=== PATIENT | male | born 1950 | race Caucasian/White ===

== ENCOUNTER 2017-08-16 11:38 | Inpatient (IN) | payer MEDICARE, BC ==
[~2017-08-16] VITALS: Ht 188 cm; Wt 99.3 kg
[2017-08-16] MEDS ORDERED: AMLO2.5T2 PO (14:22)
[2017-08-16] MEDS ORDERED: CAPT12.53 PO (14:22)
[2017-08-16] MEDS ORDERED: ATOR40TA PO (14:22)
[2017-08-16] MEDS ORDERED: CARV12.5 PO (14:22)
[2017-08-16] MEDS ORDERED: APIX5TAB3 PO (14:22)
[2017-08-16] MEDS ORDERED: INSU300I (14:22)
[2017-08-16] MEDS ORDERED: BUME1TAB4 PO (14:22)
[2017-08-16] MEDS ORDERED: AMIO200T27 PO (14:22)
[2017-08-16] MEDS ORDERED: ISOS10TA8 PO (14:22)
[2017-08-16] MEDS ORDERED: OXYC-658 PO (14:22)
[2017-08-16] MEDS ORDERED: dextrose 50%-water 50ml dispensing syringe IV PRN ×2 (14:30)
[2017-08-16] MEDS ORDERED: potassium Cl 40MEQ/NS 500ml 500 ML IV PRN ×2 (14:30)
[2017-08-16] MEDS: K and/or MAG REPLACEMENT MC SCH (14:30)
[2017-08-16] MEDS ORDERED: magnesium 2GM in 50ml NS 50 ML IV PRN (14:30)
[2017-08-16] MEDS ORDERED: MESSAGE TO PHARMACY PO ONE (14:30)
[2017-08-16] MEDS ORDERED: glucagon, human recombinant 1mg kit SUBCUT PRN (14:30)
[2017-08-16] MEDS ORDERED: magnesium 4gm in 100ml NS 100 ML IV PRN (14:30)
[2017-08-16] MEDS ORDERED: dextrose ORAL solution 15 GM/59 ML bottle PO PRN (14:30)
[2017-08-16] MEDS ORDERED: magnesium Cl slow-release 64mg tablet PO PRN (14:30)
[2017-08-16] MEDS ORDERED: acetaminophen 325mg tablet PO PRN (14:30)
[2017-08-16] MEDS ORDERED: mag hydrox/Alum hydrox/simeth 30ml oral suspension PO PRN (14:30)
[2017-08-16] MEDS ORDERED: potassium Cl 20 mEq SR tablet PO PRN (14:30)
[2017-08-16] MEDS ORDERED: ISOS30TA6 PO (14:41)
[2017-08-16 14:42] VITALS: BP 106/57
[2017-08-16] MEDS ORDERED: nitroGLYCERIN 0.4mg SUBLingual tab SL PRN (14:45)
[2017-08-16] MEDS ORDERED: metoprolol tartrate 1mg/ml inj IV PRN (14:45)
[2017-08-16] MEDS ORDERED: regadenoson 0.4mg/5ml syringe IV ONE (14:45)
[2017-08-16] MEDS ORDERED: CAFFEINE CITRATE 60 MG/3 ML injection vial IV PRN (14:45)
[2017-08-16] MEDS: DOBUTamine-DoBUTrex 500mg/D5W 250 ML IV SCH (15:14)
[2017-08-16 15:51] LABS: BASOPHILS % (AUTO) 0.2 % (0-1); EOSINOPHILS # (AUTO) 0.5 X10'3 (0-0.9); EOSINOPHILS % (AUTO) 14.2 % (0-6); HEMATOCRIT 28.6 % (42.0-52.0); HEMOGLOBIN 9.6 g/dl (14.0-17.9); LYMPHOCYTES # (AUTO) 0.8 X10'3 (1.1-4.8); LYMPHOCYTES % (AUTO) 24.5 % (21-51); MEAN CORPUSCULAR HGB CONC 33.6 % (33.0-36.5); MEAN CORPUSCULAR VOLUME 98.1 FL (78-98); MEAN PLATELET VOLUME 8.3 FL (7.4-10.4); MONOCYTES # (AUTO) 0.5 X10'3 (0-0.9); MONOCYTES % (AUTO) 14.8 % (2-12); NEUTROPHILS # (AUTO) 1.5 X10'3 (1.8-7.7); NEUTROPHILS % (AUTO) 46.3 % (42-75); PLATELET COUNT 141 X10'3 (140-440); RED BLOOD COUNT 2.91 X10'6 (4.70-6.10); RED CELL DISTRIBUTION WIDTH 18.3 % (11.5-14.5); WHITE BLOOD COUNT 3.2 X10'3 (4.5-11.0)
[2017-08-16 16:15] LABS: ALANINE AMINOTRANSFERASE 16 U/L (12-78); ALBUMIN 2.9 G/DL (3.4-5.0); ALBUMIN/GLOBULIN RATIO 0.7 (1.1-1.5); ALKALINE PHOSPHATASE 113 IU/L (46-116); ANION GAP 16 (8-16); ASPARTATE AMINO TRANSFERASE 26 U/L (10-37); BLOOD UREA NITROGEN 95 MG/DL (7-18); BUN/CREATININE RATIO 19.5 (5.4-32.0); CALCIUM 8.9 MG/DL (8.5-10.1); CHLORIDE 97 MMOL/L (99-107); CREATININE 4.88 MG/DL (0.60-1.10); GLUCOSE 164 MG/DL (70-104); MAGNESIUM 2.5 MG/DL (1.5-2.4); POTASSIUM 3.1 MMOL/L (3.5-5.1); SODIUM 136 MMOL/L (135-145); TOTAL CARBON DIOXIDE 23.4 MMOL/L (24-32); TOTAL PROTEIN 7.2 G/DL (6.4-8.2); eGFR 12 ML/MIN
[2017-08-16 16:20] LABS: INR 1.4 INR; PARTIAL THROMBOPLASTIN TIME 37 SECONDS (22-32); PROTHROMBIN TIME 14.6 SECONDS (9.0-12.0)
[2017-08-16 16:34] LABS: CLARITY,URINE CLEAR (Clear); COLOR,URINE YELLOW (Yellow); GLUCOSE, URINE NEGATIVE (Neg); KETONES,URINE NEGATIVE (Neg); LEUKOCYTE ESTERASE ,URINE NEGATIVE (Neg); NITRITES, URINE NEGATIVE (Neg); OCCULT BLOOD,URINE TRACE-INTACT (Neg); PROTEIN,URINE 30 mg/dl (Neg); UROBILINOGEN,URINE 0.2 E.U/dL (0.2-1.0)
[2017-08-16 16:35] LABS: UA COLLECTION TYPE NON-SPECIFIED
[2017-08-16] MEDS: potassium Cl 20 mEq SR tablet PO PRN ×2 (16:35→20:35)
[2017-08-16 16:43] LABS: HYALINE CASTS 0-3 /LPF (NEGATIVE); SQUAMOUS EPITHELIAL CELL,UR FEW /LPF (FEW)
[2017-08-16 16:44] LABS: BACTERIA,URINE FEW /HPF (Neg); RBC,URINE 0-2 /HPF (0-2); WBC,URINE 0-4 /HPF (0-4)
[2017-08-16 17:07] LABS: UA EOSINOPHILS FEW EOS /HPF
[2017-08-16 19:00] VITALS: BP 112/57
[2017-08-16] MEDS: atorvastatin 20mg tablet PO SCH (20:23)
[2017-08-16] MEDS: carVEDilol 12.5mg tablet PO SCH (20:23)
[2017-08-16] MEDS: apixaban 5mg tablet PO SCH (20:23)
[2017-08-16] MEDS: oxyCODONE IR 5mg (immed. release) tablet PO PRN (20:36)
[2017-08-16] MEDS: insulin glargine (Lantus) pen - multi-dose SQ SCH (20:44)
[2017-08-16 21:00] VITALS: BP 130/72
[2017-08-16] MEDS ORDERED: temazepam 15mg capsule PO PRN (21:00)
[2017-08-16] MEDS ORDERED: insulin glargine (Lantus) pen - multi-dose SQ SCH (21:00)
[2017-08-16 23:00] VITALS: BP 124/76
[2017-08-17] VITALS (9 sets, daily range): BP systolic 113–128; BP diastolic 64–72
[2017-08-17 05:27] LABS: BASOPHILS % (AUTO) 0.6 % (0-1); EOSINOPHILS # (AUTO) 0.6 X10'3 (0-0.9); EOSINOPHILS % (AUTO) 15.7 % (0-6); HEMATOCRIT 28.9 % (42.0-52.0); HEMOGLOBIN 9.4 g/dl (14.0-17.9); LYMPHOCYTES # (AUTO) 0.7 X10'3 (1.1-4.8); MEAN CORPUSCULAR HEMOGLOBIN 32.5 PG (27.0-31.0); MEAN CORPUSCULAR HGB CONC 32.6 % (33.0-36.5); MEAN CORPUSCULAR VOLUME 99.6 FL (78-98); MEAN PLATELET VOLUME 8.2 FL (7.4-10.4); MONOCYTES # (AUTO) 0.5 X10'3 (0-0.9); NEUTROPHILS # (AUTO) 1.8 X10'3 (1.8-7.7); NEUTROPHILS % (AUTO) 50.7 % (42-75); PLATELET COUNT 145 X10'3 (140-440); RED BLOOD COUNT 2.91 X10'6 (4.70-6.10); WHITE BLOOD COUNT 3.6 X10'3 (4.5-11.0)
[2017-08-17 06:09] LABS: ALANINE AMINOTRANSFERASE 17 U/L (12-78); ALBUMIN 2.8 G/DL (3.4-5.0); ALBUMIN/GLOBULIN RATIO 0.7 (1.1-1.5); ALKALINE PHOSPHATASE 104 IU/L (46-116); ANION GAP 15 (8-16); ASPARTATE AMINO TRANSFERASE 19 U/L (10-37); BILIRUBIN,TOTAL 1.3 MG/DL (0.1-1.0); BLOOD UREA NITROGEN 96 MG/DL (7-18); BUN/CREATININE RATIO 19.5 (5.4-32.0); CALCIUM 9.1 MG/DL (8.5-10.1); CHLORIDE 100 MMOL/L (99-107); CHOL/HDL RATIO 1.8 (0.00-4.99); CHOLESTEROL 70 MG/DL (0-200); CREATININE 4.92 MG/DL (0.60-1.10); GLUCOSE 180 MG/DL (70-104); HDL CHOLESTEROL 38 MG/DL (35-60); LDL CHOLESTEROL 28 MG/DL (50-100); MAGNESIUM 2.3 MG/DL (1.5-2.4); PHOSPHORUS 5.1 MG/DL (2.3-4.5); POTASSIUM 3.4 MMOL/L (3.5-5.1); SODIUM 139 MMOL/L (135-145); TOTAL CARBON DIOXIDE 24.3 MMOL/L (24-32); TRIGLYCERIDES 38 MG/DL (20-135); eGFR 12 ML/MIN
[2017-08-17] MEDS: K and/or MAG REPLACEMENT MC SCH (08:00)
[2017-08-17] MEDS: apixaban 5mg tablet PO SCH ×2 (08:21→20:12)
[2017-08-17] MEDS: isosorbide mononitrate 30mg tab.SR.24H PO SCH (08:21)
[2017-08-17] MEDS: amLODIPine 5mg tablet PO SCH (08:21)
[2017-08-17] MEDS: carVEDilol 12.5mg tablet PO SCH ×2 (08:21→20:12)
[2017-08-17] MEDS: furosemide 40mg/4ml inj IV SCH (08:22)
[2017-08-17] MEDS: oxyCODONE IR 5mg (immed. release) tablet PO PRN ×2 (09:48→20:12)
[2017-08-17] MEDS: DOBUTamine-DoBUTrex 500mg/D5W 250 ML IV SCH (09:49)
[2017-08-17] MEDS: potassium Cl 20 mEq SR tablet PO PRN ×2 (09:55→20:12)
[2017-08-17] MEDS ORDERED: pneumococcal 23-VAL P-sac vacc 25 mcg/0.5ml vial IMVAC ONE (10:00)
[2017-08-17] MEDS: insulin Lispro (HumaLOG) vial - multi-dose SQ SCH (14:09)
[2017-08-17] MEDS: ondansetron/PF 4mg/2ml inj IV PRN (15:58)
[2017-08-17] MEDS: atorvastatin 20mg tablet PO SCH (20:12)
[2017-08-17] MEDS: insulin glargine (Lantus) pen - multi-dose SQ SCH (21:00)
[2017-08-18] VITALS (10 sets, daily range): BP systolic 104–126; BP diastolic 60–91
[2017-08-18] MEDS: DOBUTamine-DoBUTrex 500mg/D5W 250 ML IV SCH ×4 (02:04→21:58)
[2017-08-18] MEDS: oxyCODONE IR 5mg (immed. release) tablet PO PRN ×2 (02:39→19:31)
[2017-08-18 05:40] LABS: BASOPHILS % (AUTO) 0.6 % (0-1); EOSINOPHILS # (AUTO) 0.6 X10'3 (0-0.9); EOSINOPHILS % (AUTO) 18.1 % (0-6); HEMATOCRIT 27.6 % (42.0-52.0); HEMOGLOBIN 9.3 g/dl (14.0-17.9); LYMPHOCYTES # (AUTO) 0.5 X10'3 (1.1-4.8); LYMPHOCYTES % (AUTO) 16.9 % (21-51); MEAN CORPUSCULAR HEMOGLOBIN 32.7 PG (27.0-31.0); MEAN CORPUSCULAR HGB CONC 33.5 % (33.0-36.5); MEAN CORPUSCULAR VOLUME 97.5 FL (78-98); MEAN PLATELET VOLUME 8.1 FL (7.4-10.4); MONOCYTES # (AUTO) 0.4 X10'3 (0-0.9); MONOCYTES % (AUTO) 13.5 % (2-12); NEUTROPHILS # (AUTO) 1.6 X10'3 (1.8-7.7); NEUTROPHILS % (AUTO) 50.9 % (42-75); PLATELET COUNT 136 X10'3 (140-440); RED BLOOD COUNT 2.83 X10'6 (4.70-6.10); WHITE BLOOD COUNT 3.1 X10'3 (4.5-11.0)
[2017-08-18 07:22] LABS: ALANINE AMINOTRANSFERASE 15 U/L (12-78); ALBUMIN 2.8 G/DL (3.4-5.0); ALBUMIN/GLOBULIN RATIO 0.7 (1.1-1.5); ALKALINE PHOSPHATASE 98 IU/L (46-116); ANION GAP 15 (8-16); ASPARTATE AMINO TRANSFERASE 25 U/L (10-37); BILIRUBIN,TOTAL 1.5 MG/DL (0.1-1.0); BLOOD UREA NITROGEN 95 MG/DL (7-18); BUN/CREATININE RATIO 20.1 (5.4-32.0); CALCIUM 8.9 MG/DL (8.5-10.1); CHLORIDE 100 MMOL/L (99-107); CREATININE 4.73 MG/DL (0.60-1.10); GLUCOSE 143 MG/DL (70-104); MAGNESIUM 2.3 MG/DL (1.5-2.4); PHOSPHORUS 4.7 MG/DL (2.3-4.5); POTASSIUM 3.9 MMOL/L (3.5-5.1); SODIUM 138 MMOL/L (135-145); TOTAL CARBON DIOXIDE 22.9 MMOL/L (24-32); TOTAL PROTEIN 6.8 G/DL (6.4-8.2); eGFR 12 ML/MIN
[2017-08-18] MEDS: carVEDilol 12.5mg tablet PO SCH ×2 (07:48→19:22)
[2017-08-18] MEDS: apixaban 5mg tablet PO SCH ×2 (07:48→19:22)
[2017-08-18] MEDS: isosorbide mononitrate 30mg tab.SR.24H PO SCH (07:48)
[2017-08-18] MEDS: furosemide 40mg/4ml inj IV SCH (07:49)
[2017-08-18] MEDS: amLODIPine 5mg tablet PO SCH (07:49)
[2017-08-18] MEDS: K and/or MAG REPLACEMENT MC SCH (08:00)
[2017-08-18] MEDS: insulin Lispro (HumaLOG) vial - multi-dose SQ SCH ×2 (13:27→19:27)
[2017-08-18] MEDS: atorvastatin 20mg tablet PO SCH (21:14)
[2017-08-18] MEDS: insulin glargine (Lantus) pen - multi-dose SQ SCH (21:20)
[2017-08-19] VITALS (8 sets, daily range): BP systolic 103–131; BP diastolic 56–94
[2017-08-19] MEDS: oxyCODONE IR 5mg (immed. release) tablet PO PRN ×4 (01:38→21:22)
[2017-08-19 05:18] LABS: BASOPHILS % (AUTO) 0.3 % (0-1); EOSINOPHILS # (AUTO) 0.6 X10'3 (0-0.9); EOSINOPHILS % (AUTO) 18.3 % (0-6); HEMATOCRIT 28.2 % (42.0-52.0); HEMOGLOBIN 9.3 g/dl (14.0-17.9); LYMPHOCYTES # (AUTO) 0.6 X10'3 (1.1-4.8); LYMPHOCYTES % (AUTO) 17.5 % (21-51); MEAN CORPUSCULAR HEMOGLOBIN 32.6 PG (27.0-31.0); MEAN CORPUSCULAR HGB CONC 32.9 % (33.0-36.5); MONOCYTES # (AUTO) 0.4 X10'3 (0-0.9); MONOCYTES % (AUTO) 12.7 % (2-12); NEUTROPHILS # (AUTO) 1.7 X10'3 (1.8-7.7); NEUTROPHILS % (AUTO) 51.2 % (42-75); PLATELET COUNT 141 X10'3 (140-440); RED BLOOD COUNT 2.85 X10'6 (4.70-6.10); RED CELL DISTRIBUTION WIDTH 18.1 % (11.5-14.5); WHITE BLOOD COUNT 3.4 X10'3 (4.5-11.0)
[2017-08-19 06:05] LABS: ALANINE AMINOTRANSFERASE 15 U/L (12-78); ALBUMIN 2.9 G/DL (3.4-5.0); ALBUMIN/GLOBULIN RATIO 0.7 (1.1-1.5); ALKALINE PHOSPHATASE 106 IU/L (46-116); ANION GAP 14 (8-16); ASPARTATE AMINO TRANSFERASE 24 U/L (10-37); BILIRUBIN,TOTAL 1.4 MG/DL (0.1-1.0); BLOOD UREA NITROGEN 94 MG/DL (7-18); BUN/CREATININE RATIO 19.1 (5.4-32.0); CALCIUM 8.9 MG/DL (8.5-10.1); CHLORIDE 99 MMOL/L (99-107); CREATININE 4.91 MG/DL (0.60-1.10); GLUCOSE 100 MG/DL (70-104); MAGNESIUM 2.5 MG/DL (1.5-2.4); PHOSPHORUS 4.9 MG/DL (2.3-4.5); POTASSIUM 3.8 MMOL/L (3.5-5.1); SODIUM 139 MMOL/L (135-145); TOTAL CARBON DIOXIDE 26.2 MMOL/L (24-32); TOTAL PROTEIN 7.2 G/DL (6.4-8.2); eGFR 12 ML/MIN
[2017-08-19] MEDS: ondansetron/PF 4mg/2ml inj IV PRN (06:30)
[2017-08-19] MEDS: carVEDilol 12.5mg tablet PO SCH ×2 (07:30→19:38)
[2017-08-19] MEDS: apixaban 5mg tablet PO SCH ×2 (07:30→19:38)
[2017-08-19] MEDS: isosorbide mononitrate 30mg tab.SR.24H PO SCH (07:30)
[2017-08-19] MEDS: amLODIPine 5mg tablet PO SCH (07:30)
[2017-08-19] MEDS: furosemide 40mg/4ml inj IV SCH (07:31)
[2017-08-19] MEDS: K and/or MAG REPLACEMENT MC SCH (08:00)
[2017-08-19] MEDS: insulin Lispro (HumaLOG) vial - multi-dose SQ SCH ×2 (09:13→19:37)
[2017-08-19] MEDS: DOBUTamine-DoBUTrex 500mg/D5W 250 ML IV SCH (16:19)
[2017-08-19] MEDS: atorvastatin 20mg tablet PO SCH (21:14)
[2017-08-19] MEDS: insulin glargine (Lantus) pen - multi-dose SQ SCH (21:16)
[2017-08-19] MEDS: magnesium hydroxide 30ml (MOM) UD suspension PO PRN (23:17)
[2017-08-20] VITALS (9 sets, daily range): BP systolic 94–129; BP diastolic 53–84
[2017-08-20] MEDS: oxyCODONE IR 5mg (immed. release) tablet PO PRN ×3 (05:28→21:26)
[2017-08-20 06:07] LABS: BASOPHILS % (AUTO) 0.7 % (0-1); EOSINOPHILS # (AUTO) 0.6 X10'3 (0-0.9); EOSINOPHILS % (AUTO) 17.2 % (0-6); HEMATOCRIT 26.2 % (42.0-52.0); HEMOGLOBIN 8.8 g/dl (14.0-17.9); LYMPHOCYTES # (AUTO) 0.6 X10'3 (1.1-4.8); LYMPHOCYTES % (AUTO) 18.3 % (21-51); MEAN CORPUSCULAR HEMOGLOBIN 32.9 PG (27.0-31.0); MEAN CORPUSCULAR HGB CONC 33.7 % (33.0-36.5); MEAN CORPUSCULAR VOLUME 97.8 FL (78-98); MEAN PLATELET VOLUME 8.3 FL (7.4-10.4); MONOCYTES # (AUTO) 0.4 X10'3 (0-0.9); MONOCYTES % (AUTO) 12.8 % (2-12); NEUTROPHILS # (AUTO) 1.7 X10'3 (1.8-7.7); PLATELET COUNT 127 X10'3 (140-440); RED BLOOD COUNT 2.68 X10'6 (4.70-6.10); RED CELL DISTRIBUTION WIDTH 18.1 % (11.5-14.5); WHITE BLOOD COUNT 3.3 X10'3 (4.5-11.0)
[2017-08-20 06:43] LABS: ALANINE AMINOTRANSFERASE 18 U/L (12-78); ALBUMIN 2.8 G/DL (3.4-5.0); ALBUMIN/GLOBULIN RATIO 0.7 (1.1-1.5); ALKALINE PHOSPHATASE 96 IU/L (46-116); ANION GAP 13 (8-16); ASPARTATE AMINO TRANSFERASE 25 U/L (10-37); BILIRUBIN,TOTAL 1.2 MG/DL (0.1-1.0); BLOOD UREA NITROGEN 98 MG/DL (7-18); BUN/CREATININE RATIO 19.1 (5.4-32.0); CALCIUM 8.8 MG/DL (8.5-10.1); CHLORIDE 98 MMOL/L (99-107); CREATININE 5.12 MG/DL (0.60-1.10); GLUCOSE 122 MG/DL (70-104); MAGNESIUM 2.4 MG/DL (1.5-2.4); PHOSPHORUS 4.7 MG/DL (2.3-4.5); POTASSIUM 3.7 MMOL/L (3.5-5.1); SODIUM 137 MMOL/L (135-145); TOTAL CARBON DIOXIDE 26.2 MMOL/L (24-32); TOTAL PROTEIN 6.9 G/DL (6.4-8.2); eGFR 11 ML/MIN
[2017-08-20] MEDS: carVEDilol 12.5mg tablet PO SCH ×2 (07:26→19:42)
[2017-08-20] MEDS: furosemide 40mg/4ml inj IV SCH (07:26)
[2017-08-20] MEDS: amLODIPine 5mg tablet PO SCH (07:26)
[2017-08-20] MEDS: isosorbide mononitrate 30mg tab.SR.24H PO SCH (07:26)
[2017-08-20] MEDS: apixaban 5mg tablet PO SCH ×2 (07:26→19:42)
[2017-08-20] MEDS: K and/or MAG REPLACEMENT MC SCH (08:00)
[2017-08-20] MEDS: metolazone 2.5mg tablet PO SCH (09:20)
[2017-08-20] MEDS: insulin Lispro (HumaLOG) vial - multi-dose SQ SCH ×3 (09:23→18:44)
[2017-08-20] MEDS: DOBUTamine-DoBUTrex 500mg/D5W 250 ML IV SCH (11:54)
[2017-08-20] MEDS: atorvastatin 20mg tablet PO SCH (20:57)
[2017-08-20] MEDS: insulin glargine (Lantus) pen - multi-dose SQ SCH (21:00)
[2017-08-20] MEDS: ondansetron/PF 4mg/2ml inj IV PRN (21:09)
[2017-08-21] VITALS (15 sets, daily range): BP systolic 101–126; BP diastolic 51–76
[2017-08-21] MEDS: oxyCODONE IR 5mg (immed. release) tablet PO PRN ×3 (04:03→17:11)
[2017-08-21] MEDS: DOBUTamine-DoBUTrex 500mg/D5W 250 ML IV SCH (05:36)
[2017-08-21 06:01] LABS: BASOPHILS % (AUTO) 0.5 % (0-1); EOSINOPHILS # (AUTO) 0.6 X10'3 (0-0.9); EOSINOPHILS % (AUTO) 16.7 % (0-6); HEMATOCRIT 27.3 % (42.0-52.0); HEMOGLOBIN 9.2 g/dl (14.0-17.9); LYMPHOCYTES # (AUTO) 0.8 X10'3 (1.1-4.8); LYMPHOCYTES % (AUTO) 20.9 % (21-51); MEAN CORPUSCULAR HEMOGLOBIN 32.7 PG (27.0-31.0); MEAN CORPUSCULAR HGB CONC 33.7 % (33.0-36.5); MEAN CORPUSCULAR VOLUME 97.1 FL (78-98); MEAN PLATELET VOLUME 8.6 FL (7.4-10.4); MONOCYTES # (AUTO) 0.4 X10'3 (0-0.9); MONOCYTES % (AUTO) 11.4 % (2-12); NEUTROPHILS # (AUTO) 1.9 X10'3 (1.8-7.7); NEUTROPHILS % (AUTO) 50.5 % (42-75); PLATELET COUNT 137 X10'3 (140-440); RED BLOOD COUNT 2.81 X10'6 (4.70-6.10); RED CELL DISTRIBUTION WIDTH 17.4 % (11.5-14.5); WHITE BLOOD COUNT 3.9 X10'3 (4.5-11.0)
[2017-08-21 06:58] LABS: ALANINE AMINOTRANSFERASE 19 U/L (12-78); ALBUMIN/GLOBULIN RATIO 0.7 (1.1-1.5); ALKALINE PHOSPHATASE 98 IU/L (46-116); ANION GAP 14 (8-16); ASPARTATE AMINO TRANSFERASE 28 U/L (10-37); BILIRUBIN,TOTAL 1.1 MG/DL (0.1-1.0); BLOOD UREA NITROGEN 99 MG/DL (7-18); BUN/CREATININE RATIO 18.6 (5.4-32.0); CHLORIDE 96 MMOL/L (99-107); CREATININE 5.33 MG/DL (0.60-1.10); GLUCOSE 81 MG/DL (70-104); MAGNESIUM 2.6 MG/DL (1.5-2.4); PHOSPHORUS 4.3 MG/DL (2.3-4.5); POTASSIUM 4.4 MMOL/L (3.5-5.1); SODIUM 135 MMOL/L (135-145); TOTAL CARBON DIOXIDE 25.1 MMOL/L (24-32); TOTAL PROTEIN 7.4 G/DL (6.4-8.2); eGFR 11 ML/MIN
[2017-08-21] MEDS: isosorbide mononitrate 30mg tab.SR.24H PO SCH (07:50)
[2017-08-21] MEDS: furosemide 40mg/4ml inj IV SCH ×2 (07:50→20:45)
[2017-08-21] MEDS: carVEDilol 12.5mg tablet PO SCH ×2 (07:50→20:45)
[2017-08-21] MEDS: apixaban 5mg tablet PO SCH ×2 (07:50→20:45)
[2017-08-21] MEDS: amLODIPine 5mg tablet PO SCH (07:50)
[2017-08-21] MEDS: metolazone 2.5mg tablet PO SCH (07:54)
[2017-08-21] MEDS: K and/or MAG REPLACEMENT MC SCH (08:00)
[2017-08-21] MEDS: insulin Lispro (HumaLOG) vial - multi-dose SQ SCH (09:24)
[2017-08-21] MEDS: atorvastatin 20mg tablet PO SCH (20:44)
[2017-08-21] MEDS: insulin glargine (Lantus) pen - multi-dose SQ SCH (21:24)
[2017-08-22] VITALS (11 sets, daily range): BP systolic 104–123; BP diastolic 63–80
[2017-08-22] MEDS: oxyCODONE IR 5mg (immed. release) tablet PO PRN ×4 (01:13→20:29)
[2017-08-22] MEDS: DOBUTamine-DoBUTrex 500mg/D5W 250 ML IV SCH ×2 (01:17→20:16)
[2017-08-22 05:24] LABS: BASOPHILS % (AUTO) 1.1 % (0-1); EOSINOPHILS # (AUTO) 0.6 X10'3 (0-0.9); HEMATOCRIT 26.5 % (42.0-52.0); HEMOGLOBIN 8.9 g/dl (14.0-17.9); LYMPHOCYTES # (AUTO) 0.7 X10'3 (1.1-4.8); LYMPHOCYTES % (AUTO) 16.6 % (21-51); MEAN CORPUSCULAR HEMOGLOBIN 32.7 PG (27.0-31.0); MEAN CORPUSCULAR HGB CONC 33.7 % (33.0-36.5); MEAN CORPUSCULAR VOLUME 97.1 FL (78-98); MEAN PLATELET VOLUME 8.4 FL (7.4-10.4); MONOCYTES # (AUTO) 0.4 X10'3 (0-0.9); MONOCYTES % (AUTO) 11.2 % (2-12); NEUTROPHILS # (AUTO) 2.2 X10'3 (1.8-7.7); NEUTROPHILS % (AUTO) 55.1 % (42-75); PLATELET COUNT 118 X10'3 (140-440); RED BLOOD COUNT 2.73 X10'6 (4.70-6.10); RED CELL DISTRIBUTION WIDTH 17.5 % (11.5-14.5); WHITE BLOOD COUNT 3.9 X10'3 (4.5-11.0)
[2017-08-22 06:18] LABS: ALANINE AMINOTRANSFERASE 13 U/L (12-78); ALBUMIN 2.9 G/DL (3.4-5.0); ALBUMIN/GLOBULIN RATIO 0.7 (1.1-1.5); ALKALINE PHOSPHATASE 94 IU/L (46-116); ANION GAP 14 (8-16); ASPARTATE AMINO TRANSFERASE 25 U/L (10-37); BILIRUBIN,TOTAL 1.1 MG/DL (0.1-1.0); BLOOD UREA NITROGEN 101 MG/DL (7-18); BUN/CREATININE RATIO 17.8 (5.4-32.0); CALCIUM 8.9 MG/DL (8.5-10.1); CHLORIDE 95 MMOL/L (99-107); CREATININE 5.69 MG/DL (0.60-1.10); GLUCOSE 181 MG/DL (70-104); MAGNESIUM 2.7 MG/DL (1.5-2.4); PHOSPHORUS 4.9 MG/DL (2.3-4.5); POTASSIUM 4.3 MMOL/L (3.5-5.1); SODIUM 133 MMOL/L (135-145); TOTAL CARBON DIOXIDE 23.9 MMOL/L (24-32); TOTAL PROTEIN 7.1 G/DL (6.4-8.2); eGFR 10 ML/MIN
[2017-08-22] MEDS: amLODIPine 5mg tablet PO SCH (07:46)
[2017-08-22] MEDS: carVEDilol 12.5mg tablet PO SCH ×2 (07:46→20:13)
[2017-08-22] MEDS: isosorbide mononitrate 30mg tab.SR.24H PO SCH (07:46)
[2017-08-22] MEDS: apixaban 5mg tablet PO SCH ×2 (07:46→20:13)
[2017-08-22] MEDS: K and/or MAG REPLACEMENT MC SCH (08:00)
[2017-08-22] MEDS: insulin Lispro (HumaLOG) vial - multi-dose SQ SCH ×2 (09:01→14:16)
[2017-08-22] MEDS: normal saline 1000ml 1,000 ML IV SCH ×2 (09:04→23:00)
[2017-08-22] MEDS: atorvastatin 20mg tablet PO SCH (20:13)
[2017-08-22] MEDS: insulin glargine (Lantus) pen - multi-dose SQ SCH (20:25)
[2017-08-23] VITALS (11 sets, daily range): BP systolic 105–126; BP diastolic 57–72
[2017-08-23] MEDS: oxyCODONE IR 5mg (immed. release) tablet PO PRN ×3 (03:30→21:24)
[2017-08-23 07:37] LABS: BASOPHILS % (AUTO) 0.5 % (0-1); EOSINOPHILS # (AUTO) 0.6 X10'3 (0-0.9); EOSINOPHILS % (AUTO) 14.8 % (0-6); HEMOGLOBIN 9.2 g/dl (14.0-17.9); LYMPHOCYTES # (AUTO) 0.7 X10'3 (1.1-4.8); LYMPHOCYTES % (AUTO) 17.6 % (21-51); MEAN CORPUSCULAR HEMOGLOBIN 32.3 PG (27.0-31.0); MEAN CORPUSCULAR HGB CONC 32.9 % (33.0-36.5); MEAN CORPUSCULAR VOLUME 98.3 FL (78-98); MEAN PLATELET VOLUME 8.7 FL (7.4-10.4); MONOCYTES # (AUTO) 0.5 X10'3 (0-0.9); MONOCYTES % (AUTO) 11.3 % (2-12); NEUTROPHILS # (AUTO) 2.3 X10'3 (1.8-7.7); NEUTROPHILS % (AUTO) 55.8 % (42-75); PLATELET COUNT 121 X10'3 (140-440); RED BLOOD COUNT 2.85 X10'6 (4.70-6.10); RED CELL DISTRIBUTION WIDTH 17.8 % (11.5-14.5); WHITE BLOOD COUNT 4.1 X10'3 (4.5-11.0)
[2017-08-23 07:46] LABS: ALANINE AMINOTRANSFERASE 16 U/L (12-78); ALBUMIN/GLOBULIN RATIO 0.7 (1.1-1.5); ALKALINE PHOSPHATASE 96 IU/L (46-116); ANION GAP 13 (8-16); ASPARTATE AMINO TRANSFERASE 31 U/L (10-37); BILIRUBIN,TOTAL 1.1 MG/DL (0.1-1.0); BLOOD UREA NITROGEN 99 MG/DL (7-18); BUN/CREATININE RATIO 16.8 (5.4-32.0); CALCIUM 8.8 MG/DL (8.5-10.1); CHLORIDE 96 MMOL/L (99-107); CREATININE 5.91 MG/DL (0.60-1.10); GLUCOSE 124 MG/DL (70-104); POTASSIUM 4.3 MMOL/L (3.5-5.1); SODIUM 133 MMOL/L (135-145); TOTAL CARBON DIOXIDE 24.1 MMOL/L (24-32); TOTAL PROTEIN 7.3 G/DL (6.4-8.2); eGFR 10 ML/MIN
[2017-08-23] MEDS: carVEDilol 12.5mg tablet PO SCH ×2 (07:52→21:24)
[2017-08-23] MEDS: amLODIPine 5mg tablet PO SCH (07:52)
[2017-08-23] MEDS: isosorbide mononitrate 30mg tab.SR.24H PO SCH (07:52)
[2017-08-23] MEDS ORDERED: albumin (human) 25% 100ml IV 100 ML IV PRN (08:00)
[2017-08-23] MEDS ORDERED: epoetin 20,000 units/ml inj IV ONE (08:00)
[2017-08-23] MEDS ORDERED: normal saline 1000ml 100 ML IV PRN (08:00)
[2017-08-23] MEDS: K and/or MAG REPLACEMENT MC SCH (08:00)
[2017-08-23] MEDS ORDERED: heparin 1,000 units/ml 10ml inj HE ONE ×2 (08:00)
[2017-08-23] MEDS: apixaban 5mg tablet PO SCH ×2 (08:00→20:00)
[2017-08-23] MEDS ORDERED: LIDOcaine 1%/PF (10mg/ml) 5ml vial ONE (10:07)
[2017-08-23] MEDS ORDERED: normal saline 1000ml 1,000 ML IV SCH (10:08)
[2017-08-23] MEDS ORDERED: EPI IJ ONE (10:10)
[2017-08-23] MEDS ORDERED: heparin 1,000 units/ml 10ml inj ICATH ONE (10:10)
[2017-08-23] MEDS ORDERED: fentaNYL/PF 50MCG/1 ML 2ML syringe IV PRN (10:10)
[2017-08-23] MEDS ORDERED: midazolam 2 mg/2 ml injection IV PRN (10:10)
[2017-08-23] MEDS ORDERED: LIDOCAINE 1% IJ ONE (10:10)
[2017-08-23] MEDS ORDERED: fentaNYL/PF 50MCG/1 ML 2ML syringe ONE (10:46)
[2017-08-23] MEDS ORDERED: heparin 1,000unit/ml 10ml vial 10 ML ONE (10:46)
[2017-08-23] MEDS ORDERED: midazolam 2 mg/2 ml injection ONE (10:46)
[2017-08-23] MEDS: normal saline 1000ml 1,000 ML IV SCH (11:19)
[2017-08-23] MEDS: insulin glargine (Lantus) pen - multi-dose SQ SCH (21:00)
[2017-08-23] MEDS: atorvastatin 20mg tablet PO SCH (21:23)
[2017-08-23] MEDS: DOBUTamine-DoBUTrex 500mg/D5W 250 ML IV SCH (23:19)
[2017-08-24] VITALS (11 sets, daily range): BP systolic 110–126; BP diastolic 61–73
[2017-08-24] MEDS: normal saline 1000ml 1,000 ML IV SCH (00:39)
[2017-08-24] MEDS: oxyCODONE IR 5mg (immed. release) tablet PO PRN ×3 (03:30→21:06)
[2017-08-24 04:07] LABS: ALANINE AMINOTRANSFERASE 14 U/L (12-78); ALBUMIN 2.9 G/DL (3.4-5.0); ALBUMIN/GLOBULIN RATIO 0.7 (1.1-1.5); ALKALINE PHOSPHATASE 96 IU/L (46-116); ANION GAP 10 (8-16); ASPARTATE AMINO TRANSFERASE 27 U/L (10-37); BILIRUBIN,TOTAL 1.2 MG/DL (0.1-1.0); BLOOD UREA NITROGEN 62 MG/DL (7-18); BUN/CREATININE RATIO 14.9 (5.4-32.0); CALCIUM 8.6 MG/DL (8.5-10.1); CHLORIDE 97 MMOL/L (99-107); CREATININE 4.17 MG/DL (0.60-1.10); GLUCOSE 110 MG/DL (70-104); MAGNESIUM 2.4 MG/DL (1.5-2.4); SODIUM 134 MMOL/L (135-145); TOTAL CARBON DIOXIDE 26.9 MMOL/L (24-32); eGFR 14 ML/MIN
[2017-08-24 04:22] LABS: BASOPHILS % (AUTO) 0.1 % (0-1); EOSINOPHILS # (AUTO) 0.7 X10'3 (0-0.9); EOSINOPHILS % (AUTO) 17.9 % (0-6); HEMATOCRIT 27.4 % (42.0-52.0); HEMOGLOBIN 9.1 g/dl (14.0-17.9); LYMPHOCYTES # (AUTO) 0.8 X10'3 (1.1-4.8); LYMPHOCYTES % (AUTO) 20.5 % (21-51); MEAN CORPUSCULAR HEMOGLOBIN 32.6 PG (27.0-31.0); MEAN CORPUSCULAR HGB CONC 33.4 % (33.0-36.5); MEAN CORPUSCULAR VOLUME 97.7 FL (78-98); MEAN PLATELET VOLUME 8.6 FL (7.4-10.4); MONOCYTES # (AUTO) 0.4 X10'3 (0-0.9); NEUTROPHILS # (AUTO) 1.8 X10'3 (1.8-7.7); NEUTROPHILS % (AUTO) 49.5 % (42-75); PLATELET COUNT 115 X10'3 (140-440); RED BLOOD COUNT 2.81 X10'6 (4.70-6.10); RED CELL DISTRIBUTION WIDTH 17.6 % (11.5-14.5); WHITE BLOOD COUNT 3.7 X10'3 (4.5-11.0)
[2017-08-24 04:44] LABS: TOTAL CELLS COUNTED 100
[2017-08-24 04:45] LABS: ANISOCYTOSIS 2+; HYPOCHROMASIA 1+; PLATELET ESTIMATE NORMAL
[2017-08-24 04:46] LABS: ELLIPTOCYTES 1+; SCHISTOCYTES FEW; SPHEROCYTES 1+
[2017-08-24] MEDS: apixaban 5mg tablet PO SCH (08:00)
[2017-08-24] MEDS: K and/or MAG REPLACEMENT MC SCH (08:00)
[2017-08-24] MEDS ORDERED: heparin 1,000unit/ml 10ml vial 10 ML IV ONE (08:22)
[2017-08-24] MEDS ORDERED: normal saline 1000ml 250 ML IV PRN (08:22)
[2017-08-24] MEDS ORDERED: epoetin 20,000 units/ml inj IV ONE (08:25)
[2017-08-24] MEDS ORDERED: heparin 1,000 units/ml 10ml inj HE ONE ×2 (08:30)
[2017-08-24] MEDS: carVEDilol 12.5mg tablet PO SCH ×2 (08:53→20:57)
[2017-08-24] MEDS: amLODIPine 5mg tablet PO SCH (08:53)
[2017-08-24] MEDS: isosorbide mononitrate 30mg tab.SR.24H PO SCH (08:54)
[2017-08-24] MEDS: atorvastatin 20mg tablet PO SCH (20:57)
[2017-08-24] MEDS: insulin glargine (Lantus) pen - multi-dose SQ SCH (21:29)
[2017-08-25] VITALS (19 sets, daily range): BP systolic 101–122; BP diastolic 53–76
[2017-08-25 06:10] LABS: BASOPHILS % (AUTO) 0.8 % (0-1); EOSINOPHILS # (AUTO) 0.7 X10'3 (0-0.9); EOSINOPHILS % (AUTO) 20.1 % (0-6); HEMOGLOBIN 8.8 g/dl (14.0-17.9); LYMPHOCYTES # (AUTO) 0.7 X10'3 (1.1-4.8); MEAN CORPUSCULAR HEMOGLOBIN 32.7 PG (27.0-31.0); MEAN CORPUSCULAR HGB CONC 33.7 % (33.0-36.5); MEAN PLATELET VOLUME 8.6 FL (7.4-10.4); MONOCYTES # (AUTO) 0.5 X10'3 (0-0.9); MONOCYTES % (AUTO) 15.4 % (2-12); NEUTROPHILS # (AUTO) 1.5 X10'3 (1.8-7.7); NEUTROPHILS % (AUTO) 42.7 % (42-75); PLATELET COUNT 100 X10'3 (140-440); RED BLOOD COUNT 2.68 X10'6 (4.70-6.10); RED CELL DISTRIBUTION WIDTH 17.6 % (11.5-14.5); WHITE BLOOD COUNT 3.4 X10'3 (4.5-11.0)
[2017-08-25 06:41] LABS: ALBUMIN 2.5 G/DL (3.4-5.0); ANION GAP 9 (8-16); BLOOD UREA NITROGEN 41 MG/DL (7-18); BUN/CREATININE RATIO 12.8 (5.4-32.0); CALCIUM 7.9 MG/DL (8.5-10.1); CHLORIDE 99 MMOL/L (99-107); GLUCOSE 129 MG/DL (70-104); POTASSIUM 3.4 MMOL/L (3.5-5.1); SODIUM 133 MMOL/L (135-145); TOTAL CARBON DIOXIDE 25.4 MMOL/L (24-32); eGFR 19 ML/MIN
[2017-08-25] MEDS: oxyCODONE IR 5mg (immed. release) tablet PO PRN ×3 (06:55→19:06)
[2017-08-25] MEDS: K and/or MAG REPLACEMENT MC SCH (08:00)
[2017-08-25] MEDS: amLODIPine 5mg tablet PO SCH (08:28)
[2017-08-25] MEDS: carVEDilol 12.5mg tablet PO SCH ×2 (08:28→19:01)
[2017-08-25] MEDS: isosorbide mononitrate 30mg tab.SR.24H PO SCH (08:28)
[2017-08-25] MEDS ORDERED: potassium Cl 20 mEq SR tablet PO STA (10:12)
[2017-08-25] MEDS: apixaban 5mg tablet PO SCH (12:19)
[2017-08-25] MEDS: DOBUTamine-DoBUTrex 500mg/D5W 250 ML IV SCH (13:00)
[2017-08-25] MEDS: insulin Lispro (HumaLOG) vial - multi-dose SQ SCH ×2 (13:00→18:59)
[2017-08-25] MEDS: apixaban 2.5mg tablet PO SCH (19:01)
[2017-08-25] MEDS: atorvastatin 20mg tablet PO SCH (20:57)
[2017-08-25] MEDS: insulin glargine (Lantus) pen - multi-dose SQ SCH (21:09)
[2017-08-26] VITALS (15 sets, daily range): BP systolic 102–129; BP diastolic 62–80
[2017-08-26] MEDS: oxyCODONE IR 5mg (immed. release) tablet PO PRN ×3 (02:42→16:04)
[2017-08-26 05:19] LABS: BASOPHILS % (AUTO) 0.4 % (0-1); EOSINOPHILS # (AUTO) 0.8 X10'3 (0-0.9); EOSINOPHILS % (AUTO) 22.1 % (0-6); HEMATOCRIT 25.2 % (42.0-52.0); HEMOGLOBIN 8.5 g/dl (14.0-17.9); LYMPHOCYTES # (AUTO) 0.8 X10'3 (1.1-4.8); MEAN CORPUSCULAR HEMOGLOBIN 32.6 PG (27.0-31.0); MEAN CORPUSCULAR HGB CONC 33.6 % (33.0-36.5); MEAN CORPUSCULAR VOLUME 96.9 FL (78-98); MEAN PLATELET VOLUME 8.7 FL (7.4-10.4); MONOCYTES # (AUTO) 0.5 X10'3 (0-0.9); NEUTROPHILS # (AUTO) 1.7 X10'3 (1.8-7.7); NEUTROPHILS % (AUTO) 45.5 % (42-75); PLATELET COUNT 103 X10'3 (140-440); RED CELL DISTRIBUTION WIDTH 17.2 % (11.5-14.5); WHITE BLOOD COUNT 3.8 X10'3 (4.5-11.0)
[2017-08-26 05:48] LABS: ALBUMIN 2.4 G/DL (3.4-5.0); ANION GAP 10 (8-16); BLOOD UREA NITROGEN 43 MG/DL (7-18); BUN/CREATININE RATIO 11.9 (5.4-32.0); CHLORIDE 100 MMOL/L (99-107); CREATININE 3.61 MG/DL (0.60-1.10); GLUCOSE 125 MG/DL (70-104); SODIUM 136 MMOL/L (135-145); TOTAL CARBON DIOXIDE 26.4 MMOL/L (24-32); eGFR 17 ML/MIN
[2017-08-26] MEDS: carVEDilol 12.5mg tablet PO SCH ×2 (06:55→20:44)
[2017-08-26] MEDS: isosorbide mononitrate 30mg tab.SR.24H PO SCH (06:56)
[2017-08-26] MEDS: amLODIPine 5mg tablet PO SCH (06:56)
[2017-08-26] MEDS: apixaban 2.5mg tablet PO SCH ×2 (06:56→20:44)
[2017-08-26] MEDS ORDERED: heparin 1,000 units/ml 10ml inj HE ONE ×2 (08:00)
[2017-08-26] MEDS ORDERED: normal saline 1000ml 250 ML IV PRN (08:00)
[2017-08-26] MEDS ORDERED: epoetin 20,000 units/ml inj IV ONE (08:00)
[2017-08-26] MEDS ORDERED: heparin 1,000unit/ml 10ml vial 10 ML IV ONE (08:00)
[2017-08-26] MEDS: K and/or MAG REPLACEMENT MC SCH (08:00)
[2017-08-26] MEDS: insulin Lispro (HumaLOG) vial - multi-dose SQ SCH ×2 (08:16→18:46)
[2017-08-26 11:39] LABS: HBSAG SCREEN Negative (Negative)
[2017-08-26] MEDS: atorvastatin 20mg tablet PO SCH (20:44)
[2017-08-27] MEDS: oxyCODONE IR 5mg (immed. release) tablet PO PRN ×3 (02:42→20:28)
[2017-08-27 03:00] VITALS: BP 114/67
[2017-08-27 04:27] LABS: BASOPHILS % (AUTO) 0.5 % (0-1); EOSINOPHILS # (AUTO) 0.7 X10'3 (0-0.9); EOSINOPHILS % (AUTO) 18.6 % (0-6); HEMATOCRIT 26.9 % (42.0-52.0); LYMPHOCYTES # (AUTO) 0.8 X10'3 (1.1-4.8); LYMPHOCYTES % (AUTO) 20.5 % (21-51); MEAN CORPUSCULAR HEMOGLOBIN 32.7 PG (27.0-31.0); MEAN CORPUSCULAR HGB CONC 33.5 % (33.0-36.5); MEAN CORPUSCULAR VOLUME 97.7 FL (78-98); MONOCYTES # (AUTO) 0.5 X10'3 (0-0.9); NEUTROPHILS # (AUTO) 1.9 X10'3 (1.8-7.7); NEUTROPHILS % (AUTO) 47.4 % (42-75); PLATELET COUNT 109 X10'3 (140-440); RED BLOOD COUNT 2.75 X10'6 (4.70-6.10); RED CELL DISTRIBUTION WIDTH 18.4 % (11.5-14.5)
[2017-08-27 04:34] LABS: ALBUMIN 2.6 G/DL (3.4-5.0); ANION GAP 4 (8-16); BLOOD UREA NITROGEN 27 MG/DL (7-18); BUN/CREATININE RATIO 8.5 (5.4-32.0); CALCIUM 8.4 MG/DL (8.5-10.1); CHLORIDE 98 MMOL/L (99-107); CREATININE 3.18 MG/DL (0.60-1.10); GLUCOSE 145 MG/DL (70-104); POTASSIUM 4.3 MMOL/L (3.5-5.1); SODIUM 131 MMOL/L (135-145); TOTAL CARBON DIOXIDE 28.9 MMOL/L (24-32); eGFR 20 ML/MIN
[2017-08-27 07:00] VITALS: BP 105/68
[2017-08-27] MEDS: amLODIPine 5mg tablet PO SCH (07:17)
[2017-08-27] MEDS: apixaban 2.5mg tablet PO SCH ×2 (07:17→20:28)
[2017-08-27] MEDS: isosorbide mononitrate 30mg tab.SR.24H PO SCH (07:17)
[2017-08-27] MEDS: carVEDilol 12.5mg tablet PO SCH ×2 (07:17→20:28)
[2017-08-27] MEDS: K and/or MAG REPLACEMENT MC SCH (08:00)
[2017-08-27 11:00] VITALS: BP 105/70
[2017-08-27] MEDS: insulin Lispro (HumaLOG) vial - multi-dose SQ SCH (13:10)
[2017-08-27 15:00] VITALS: BP 102/68
[2017-08-27] MEDS: DOBUTamine-DoBUTrex 500mg/D5W 250 ML IV SCH (18:53)
[2017-08-27 19:00] VITALS: BP 104/58
[2017-08-27] MEDS: atorvastatin 20mg tablet PO SCH (21:00)
[2017-08-27 23:00] VITALS: BP 102/63
[2017-08-28] VITALS (9 sets, daily range): BP systolic 98–115; BP diastolic 62–85
[2017-08-28] MEDS: oxyCODONE IR 5mg (immed. release) tablet PO PRN ×3 (03:17→17:01)
[2017-08-28 05:38] LABS: BASOPHILS % (AUTO) 0.5 % (0-1); EOSINOPHILS # (AUTO) 0.9 X10'3 (0-0.9); EOSINOPHILS % (AUTO) 20.6 % (0-6); HEMATOCRIT 26.4 % (42.0-52.0); HEMOGLOBIN 8.8 g/dl (14.0-17.9); LYMPHOCYTES # (AUTO) 0.8 X10'3 (1.1-4.8); LYMPHOCYTES % (AUTO) 19.4 % (21-51); MEAN CORPUSCULAR HEMOGLOBIN 31.9 PG (27.0-31.0); MEAN CORPUSCULAR HGB CONC 33.1 % (33.0-36.5); MEAN CORPUSCULAR VOLUME 96.3 FL (78-98); MONOCYTES # (AUTO) 0.5 X10'3 (0-0.9); NEUTROPHILS # (AUTO) 1.9 X10'3 (1.8-7.7); NEUTROPHILS % (AUTO) 46.5 % (42-75); PLATELET COUNT 119 X10'3 (140-440); RED BLOOD COUNT 2.74 X10'6 (4.70-6.10); RED CELL DISTRIBUTION WIDTH 17.8 % (11.5-14.5); WHITE BLOOD COUNT 4.2 X10'3 (4.5-11.0)
[2017-08-28 06:12] LABS: ALBUMIN 2.7 G/DL (3.4-5.0); ANION GAP 10 (8-16); BLOOD UREA NITROGEN 35 MG/DL (7-18); BUN/CREATININE RATIO 9.1 (5.4-32.0); CALCIUM 8.7 MG/DL (8.5-10.1); CHLORIDE 94 MMOL/L (99-107); CREATININE 3.86 MG/DL (0.60-1.10); GLUCOSE 139 MG/DL (70-104); POTASSIUM 4.8 MMOL/L (3.5-5.1); SODIUM 129 MMOL/L (135-145); eGFR 16 ML/MIN
[2017-08-28] MEDS: K and/or MAG REPLACEMENT MC SCH (08:00)
[2017-08-28] MEDS: insulin Lispro (HumaLOG) vial - multi-dose SQ SCH ×2 (08:14→13:26)
[2017-08-28] MEDS: isosorbide mononitrate 30mg tab.SR.24H PO SCH (08:17)
[2017-08-28] MEDS: apixaban 2.5mg tablet PO SCH ×2 (08:17→20:29)
[2017-08-28] MEDS: amLODIPine 5mg tablet PO SCH (08:17)
[2017-08-28] MEDS: carVEDilol 12.5mg tablet PO SCH ×2 (08:17→20:29)
[2017-08-28] MEDS: DOBUTamine-DoBUTrex 500mg/D5W 250 ML IV SCH (17:50)
[2017-08-28] MEDS: atorvastatin 20mg tablet PO SCH (20:29)
[2017-08-29] VITALS (9 sets, daily range): BP systolic 104–113; BP diastolic 60–86
[2017-08-29] MEDS: oxyCODONE IR 5mg (immed. release) tablet PO PRN ×2 (03:49→21:08)
[2017-08-29 05:28] LABS: ALBUMIN 2.6 G/DL (3.4-5.0); ANION GAP 9 (8-16); BLOOD UREA NITROGEN 40 MG/DL (7-18); CALCIUM 8.4 MG/DL (8.5-10.1); CHLORIDE 93 MMOL/L (99-107); CREATININE 4.46 MG/DL (0.60-1.10); GLUCOSE 189 MG/DL (70-104); SODIUM 129 MMOL/L (135-145); TOTAL CARBON DIOXIDE 27.1 MMOL/L (24-32); eGFR 13 ML/MIN
[2017-08-29 05:33] LABS: BASOPHILS % (AUTO) 0.5 % (0-1); EOSINOPHILS # (AUTO) 0.7 X10'3 (0-0.9); EOSINOPHILS % (AUTO) 18.2 % (0-6); HEMATOCRIT 25.3 % (42.0-52.0); HEMOGLOBIN 8.6 g/dl (14.0-17.9); LYMPHOCYTES # (AUTO) 0.7 X10'3 (1.1-4.8); LYMPHOCYTES % (AUTO) 18.5 % (21-51); MEAN CORPUSCULAR HEMOGLOBIN 32.5 PG (27.0-31.0); MEAN CORPUSCULAR HGB CONC 33.9 % (33.0-36.5); MONOCYTES # (AUTO) 0.4 X10'3 (0-0.9); MONOCYTES % (AUTO) 11.4 % (2-12); NEUTROPHILS % (AUTO) 51.4 % (42-75); PLATELET COUNT 114 X10'3 (140-440); RED BLOOD COUNT 2.64 X10'6 (4.70-6.10); RED CELL DISTRIBUTION WIDTH 17.4 % (11.5-14.5); WHITE BLOOD COUNT 3.9 X10'3 (4.5-11.0)
[2017-08-29] MEDS: K and/or MAG REPLACEMENT MC SCH (08:00)
[2017-08-29] MEDS: carVEDilol 12.5mg tablet PO SCH ×2 (08:00→21:00)
[2017-08-29] MEDS: insulin Lispro (HumaLOG) vial - multi-dose SQ SCH ×2 (08:23→15:09)
[2017-08-29] MEDS: apixaban 2.5mg tablet PO SCH ×2 (08:24→21:00)
[2017-08-29] MEDS: amLODIPine 5mg tablet PO SCH (08:24)
[2017-08-29] MEDS: isosorbide mononitrate 30mg tab.SR.24H PO SCH (08:24)
[2017-08-29] MEDS ORDERED: heparin 1,000unit/ml 10ml vial 10 ML IV ONE (08:47)
[2017-08-29] MEDS ORDERED: albumin (human) 25% 100ml IV 100 ML IV PRN (08:50)
[2017-08-29] MEDS ORDERED: epoetin 20,000 units/ml inj IV ONE (08:50)
[2017-08-29] MEDS ORDERED: heparin 1,000 units/ml 10ml inj HE ONE ×2 (08:55)
[2017-08-29] MEDS: ipratropium/albuterol 3ml nebule NEB SCH ×4 (10:33→23:31)
[2017-08-29] MEDS: atorvastatin 20mg tablet PO SCH (21:01)
[2017-08-30] VITALS (9 sets, daily range): BP systolic 88–115; BP diastolic 57–89
[2017-08-30] MEDS: ipratropium/albuterol 3ml nebule NEB SCH ×6 (03:57→23:18)
[2017-08-30] MEDS: K and/or MAG REPLACEMENT MC SCH (08:00)
[2017-08-30] MEDS: oxyCODONE IR 5mg (immed. release) tablet PO PRN ×3 (08:42→22:52)
[2017-08-30] MEDS: insulin Lispro (HumaLOG) vial - multi-dose SQ SCH ×2 (08:42→13:32)
[2017-08-30] MEDS: amLODIPine 5mg tablet PO SCH (08:43)
[2017-08-30] MEDS: carVEDilol 12.5mg tablet PO SCH ×2 (08:43→19:34)
[2017-08-30] MEDS: apixaban 2.5mg tablet PO SCH ×2 (08:43→19:34)
[2017-08-30] MEDS: isosorbide mononitrate 30mg tab.SR.24H PO SCH (08:43)
[2017-08-30 09:17] LABS: ALBUMIN 2.7 G/DL (3.4-5.0); ANION GAP 10 (8-16); BLOOD UREA NITROGEN 28 MG/DL (7-18); BUN/CREATININE RATIO 7.5 (5.4-32.0); CALCIUM 8.4 MG/DL (8.5-10.1); CHLORIDE 95 MMOL/L (99-107); CREATININE 3.75 MG/DL (0.60-1.10); GLUCOSE 194 MG/DL (70-104); POTASSIUM 4.6 MMOL/L (3.5-5.1); SODIUM 130 MMOL/L (135-145); TOTAL CARBON DIOXIDE 24.9 MMOL/L (24-32); eGFR 16 ML/MIN
[2017-08-30] MEDS: DOBUTamine-DoBUTrex 500mg/D5W 250 ML IV SCH (19:19)
[2017-08-30] MEDS: atorvastatin 20mg tablet PO SCH (19:34)
[2017-08-31] VITALS (18 sets, daily range): BP systolic 94–125; BP diastolic 60–93
[2017-08-31] MEDS: ipratropium/albuterol 3ml nebule NEB SCH ×6 (02:52→23:08)
[2017-08-31] MEDS: oxyCODONE IR 5mg (immed. release) tablet PO PRN ×3 (05:31→23:48)
[2017-08-31 05:37] LABS: ALBUMIN 2.6 G/DL (3.4-5.0); ANION GAP 12 (8-16); BLOOD UREA NITROGEN 33 MG/DL (7-18); BUN/CREATININE RATIO 7.8 (5.4-32.0); CALCIUM 8.6 MG/DL (8.5-10.1); CHLORIDE 95 MMOL/L (99-107); CREATININE 4.24 MG/DL (0.60-1.10); GLUCOSE 159 MG/DL (70-104); POTASSIUM 5.1 MMOL/L (3.5-5.1); SODIUM 132 MMOL/L (135-145); TOTAL CARBON DIOXIDE 24.6 MMOL/L (24-32); eGFR 14 ML/MIN
[2017-08-31 07:16] LABS: BASOPHILS % (AUTO) 0.2 % (0-1); EOSINOPHILS # (AUTO) 0.6 X10'3 (0-0.9); HEMATOCRIT 26.1 % (42.0-52.0); HEMOGLOBIN 8.7 g/dl (14.0-17.9); LYMPHOCYTES # (AUTO) 0.8 X10'3 (1.1-4.8); MEAN CORPUSCULAR HEMOGLOBIN 32.4 PG (27.0-31.0); MEAN CORPUSCULAR HGB CONC 33.5 % (33.0-36.5); MEAN CORPUSCULAR VOLUME 96.7 FL (78-98); MEAN PLATELET VOLUME 9.1 FL (7.4-10.4); MONOCYTES # (AUTO) 0.5 X10'3 (0-0.9); MONOCYTES % (AUTO) 13.1 % (2-12); NEUTROPHILS # (AUTO) 2.1 X10'3 (1.8-7.7); NEUTROPHILS % (AUTO) 52.7 % (42-75); PLATELET COUNT 104 X10'3 (140-440)
[2017-08-31] MEDS: apixaban 2.5mg tablet PO SCH ×2 (07:48→20:29)
[2017-08-31] MEDS: isosorbide mononitrate 30mg tab.SR.24H PO SCH (07:48)
[2017-08-31] MEDS: amLODIPine 5mg tablet PO SCH (07:50)
[2017-08-31] MEDS: carVEDilol 12.5mg tablet PO SCH ×2 (07:50→20:42)
[2017-08-31] MEDS ORDERED: heparin 1,000unit/ml 10ml vial 10 ML IV ONE (08:00)
[2017-08-31] MEDS: K and/or MAG REPLACEMENT MC SCH (08:00)
[2017-08-31] MEDS ORDERED: epoetin 20,000 units/ml inj IV ONE (08:00)
[2017-08-31] MEDS ORDERED: normal saline 1000ml 250 ML IV PRN (08:00)
[2017-08-31] MEDS ORDERED: heparin 1,000 units/ml 10ml inj HE ONE ×2 (08:00)
[2017-08-31] MEDS: acetaminophen 325mg tablet PO PRN (10:13)
[2017-08-31] MEDS: insulin Lispro (HumaLOG) vial - multi-dose SQ SCH (12:52)
[2017-08-31] MEDS: DOBUTamine-DoBUTrex 500mg/D5W 250 ML IV SCH (17:16)
[2017-08-31] MEDS: bumetanide 1mg tablet PO SCH (20:29)
[2017-08-31] MEDS: atorvastatin 20mg tablet PO SCH (20:29)
[2017-09-01] VITALS (15 sets, daily range): BP systolic 97–146; BP diastolic 62–85
[2017-09-01] MEDS: ipratropium/albuterol 3ml nebule NEB SCH ×6 (02:49→22:52)
[2017-09-01 06:12] LABS: ALBUMIN 2.5 G/DL (3.4-5.0); ANION GAP 8 (8-16); BLOOD UREA NITROGEN 23 MG/DL (7-18); BUN/CREATININE RATIO 6.9 (5.4-32.0); CALCIUM 8.2 MG/DL (8.5-10.1); CHLORIDE 98 MMOL/L (99-107); CREATININE 3.33 MG/DL (0.60-1.10); GLUCOSE 237 MG/DL (70-104); POTASSIUM 4.2 MMOL/L (3.5-5.1); SODIUM 134 MMOL/L (135-145); TOTAL CARBON DIOXIDE 27.9 MMOL/L (24-32); eGFR 19 ML/MIN
[2017-09-01] MEDS: apixaban 2.5mg tablet PO SCH ×2 (07:14→21:33)
[2017-09-01] MEDS: oxyCODONE IR 5mg (immed. release) tablet PO PRN ×3 (07:15→21:15)
[2017-09-01] MEDS: carVEDilol 12.5mg tablet PO SCH ×2 (07:16→21:33)
[2017-09-01] MEDS: amLODIPine 5mg tablet PO SCH (07:16)
[2017-09-01] MEDS: isosorbide mononitrate 30mg tab.SR.24H PO SCH (07:16)
[2017-09-01] MEDS: bumetanide 1mg tablet PO SCH ×2 (07:25→21:32)
[2017-09-01] MEDS: K and/or MAG REPLACEMENT MC SCH (08:00)
[2017-09-01] MEDS: insulin Lispro (HumaLOG) vial - multi-dose SQ SCH (19:12)
[2017-09-01] MEDS: atorvastatin 20mg tablet PO SCH (21:32)
[2017-09-01] MEDS: magnesium hydroxide 30ml (MOM) UD suspension PO PRN (21:45)
[2017-09-02] VITALS (14 sets, daily range): BP systolic 98–119; BP diastolic 61–76
[2017-09-02] MEDS: ipratropium/albuterol 3ml nebule NEB SCH ×6 (04:13→19:40)
[2017-09-02 05:41] LABS: ALBUMIN 2.5 G/DL (3.4-5.0); ANION GAP 10 (8-16); BLOOD UREA NITROGEN 30 MG/DL (7-18); BUN/CREATININE RATIO 7.3 (5.4-32.0); CALCIUM 8.3 MG/DL (8.5-10.1); CHLORIDE 97 MMOL/L (99-107); CREATININE 4.09 MG/DL (0.60-1.10); GLUCOSE 168 MG/DL (70-104); POTASSIUM 4.5 MMOL/L (3.5-5.1); SODIUM 135 MMOL/L (135-145); TOTAL CARBON DIOXIDE 27.7 MMOL/L (24-32); eGFR 15 ML/MIN
[2017-09-02] MEDS: isosorbide mononitrate 30mg tab.SR.24H PO SCH (07:29)
[2017-09-02] MEDS: apixaban 2.5mg tablet PO SCH ×2 (07:29→20:02)
[2017-09-02] MEDS: carVEDilol 12.5mg tablet PO SCH ×2 (07:29→20:02)
[2017-09-02] MEDS: bumetanide 1mg tablet PO SCH ×2 (07:29→20:02)
[2017-09-02] MEDS: amLODIPine 5mg tablet PO SCH (07:30)
[2017-09-02] MEDS ORDERED: normal saline 1000ml 250 ML IV PRN (08:00)
[2017-09-02] MEDS ORDERED: heparin 1,000 units/ml 10ml inj HE ONE ×2 (08:00)
[2017-09-02] MEDS ORDERED: heparin 1,000unit/ml 10ml vial 10 ML IV ONE (08:00)
[2017-09-02] MEDS: K and/or MAG REPLACEMENT MC SCH (08:00)
[2017-09-02] MEDS: insulin Lispro (HumaLOG) vial - multi-dose SQ SCH ×2 (09:20→20:11)
[2017-09-02] MEDS: DOBUTamine-DoBUTrex 500mg/D5W 250 ML IV SCH (19:45)
[2017-09-02] MEDS: atorvastatin 20mg tablet PO SCH (20:02)
[2017-09-02] MEDS: acetaminophen 325mg tablet PO PRN (20:06)
[2017-09-02] MEDS: oxyCODONE IR 5mg (immed. release) tablet PO PRN (23:02)
[2017-09-03] VITALS (9 sets, daily range): BP systolic 105–118; BP diastolic 61–82
[2017-09-03] MEDS: ipratropium/albuterol 3ml nebule NEB SCH ×7 (00:07→23:07)
[2017-09-03] MEDS: apixaban 2.5mg tablet PO SCH ×2 (07:05→20:23)
[2017-09-03] MEDS: isosorbide mononitrate 30mg tab.SR.24H PO SCH (07:05)
[2017-09-03] MEDS: oxyCODONE IR 5mg (immed. release) tablet PO PRN ×3 (07:05→20:24)
[2017-09-03] MEDS ORDERED: normal saline 1000ml 250 ML IV PRN (08:00)
[2017-09-03] MEDS: bumetanide 1mg tablet PO SCH ×2 (08:00→20:23)
[2017-09-03] MEDS: carVEDilol 12.5mg tablet PO SCH ×2 (08:00→20:23)
[2017-09-03] MEDS: amLODIPine 5mg tablet PO SCH (08:00)
[2017-09-03] MEDS ORDERED: heparin 1,000 units/ml 10ml inj HE ONE ×2 (08:00)
[2017-09-03] MEDS: K and/or MAG REPLACEMENT MC SCH (08:00)
[2017-09-03] MEDS: insulin Lispro (HumaLOG) vial - multi-dose SQ SCH ×3 (08:33→19:39)
[2017-09-03 13:04] LABS: INR 1.4 INR; PARTIAL THROMBOPLASTIN TIME 35 SECONDS (22-32)
[2017-09-03] MEDS: DOBUTamine-DoBUTrex 500mg/D5W 250 ML IV SCH (14:02)
[2017-09-03] MEDS: atorvastatin 20mg tablet PO SCH (20:23)
[2017-09-04] VITALS (8 sets, daily range): BP systolic 96–121; BP diastolic 61–70
[2017-09-04] MEDS: ipratropium/albuterol 3ml nebule NEB SCH ×6 (03:10→23:21)
[2017-09-04] MEDS: oxyCODONE IR 5mg (immed. release) tablet PO PRN ×3 (04:15→22:45)
[2017-09-04 07:01] LABS: BASOPHILS % (AUTO) 0.1 % (0-1); EOSINOPHILS # (AUTO) 0.6 X10'3 (0-0.9); EOSINOPHILS % (AUTO) 15.6 % (0-6); HEMATOCRIT 27.1 % (42.0-52.0); HEMOGLOBIN 8.9 g/dl (14.0-17.9); LYMPHOCYTES # (AUTO) 0.7 X10'3 (1.1-4.8); LYMPHOCYTES % (AUTO) 17.5 % (21-51); MEAN CORPUSCULAR HEMOGLOBIN 31.9 PG (27.0-31.0); MEAN CORPUSCULAR HGB CONC 32.9 % (33.0-36.5); MEAN CORPUSCULAR VOLUME 96.9 FL (78-98); MEAN PLATELET VOLUME 8.5 FL (7.4-10.4); MONOCYTES # (AUTO) 0.5 X10'3 (0-0.9); MONOCYTES % (AUTO) 13.5 % (2-12); NEUTROPHILS % (AUTO) 53.3 % (42-75); PLATELET COUNT 110 X10'3 (140-440); RED CELL DISTRIBUTION WIDTH 18.6 % (11.5-14.5); WHITE BLOOD COUNT 3.8 X10'3 (4.5-11.0)
[2017-09-04 07:16] LABS: CHLORIDE 101 MMOL/L (99-107); GLUCOSE 141 MG/DL (70-104); POTASSIUM 4.3 MMOL/L (3.5-5.1); SODIUM 136 MMOL/L (135-145); TOTAL CARBON DIOXIDE 26.4 MMOL/L (24-32)
[2017-09-04 07:17] LABS: ALANINE AMINOTRANSFERASE 12 U/L (12-78); ALBUMIN 2.5 G/DL (3.4-5.0); ALBUMIN/GLOBULIN RATIO 0.6 (1.1-1.5); ALKALINE PHOSPHATASE 113 IU/L (46-116); ANION GAP 9 (8-16); ASPARTATE AMINO TRANSFERASE 28 U/L (10-37); BILIRUBIN,TOTAL 1.4 MG/DL (0.1-1.0); BLOOD UREA NITROGEN 19 MG/DL (7-18); BUN/CREATININE RATIO 6.4 (5.4-32.0); CALCIUM 8.3 MG/DL (8.5-10.1); CREATININE 2.97 MG/DL (0.60-1.10); MAGNESIUM 2.1 MG/DL (1.5-2.4); TOTAL PROTEIN 6.6 G/DL (6.4-8.2); eGFR 21 ML/MIN
[2017-09-04] MEDS: K and/or MAG REPLACEMENT MC SCH (08:00)
[2017-09-04] MEDS: carVEDilol 12.5mg tablet PO SCH ×2 (09:14→19:55)
[2017-09-04] MEDS: bumetanide 1mg tablet PO SCH ×2 (09:14→19:55)
[2017-09-04] MEDS: amLODIPine 5mg tablet PO SCH (09:16)
[2017-09-04] MEDS: apixaban 2.5mg tablet PO SCH ×2 (09:16→19:55)
[2017-09-04] MEDS: isosorbide mononitrate 30mg tab.SR.24H PO SCH (09:22)
[2017-09-04] MEDS: insulin Lispro (HumaLOG) vial - multi-dose SQ SCH ×2 (10:05→13:44)
[2017-09-04] MEDS: dextrose ORAL solution 15 GM/59 ML bottle PO PRN ×2 (17:14→17:35)
[2017-09-04] MEDS: atorvastatin 20mg tablet PO SCH (19:55)
[2017-09-05] VITALS (7 sets, daily range): BP systolic 95–122; BP diastolic 56–64
[2017-09-05] MEDS: ipratropium/albuterol 3ml nebule NEB SCH ×3 (03:35→11:23)
[2017-09-05] MEDS: oxyCODONE IR 5mg (immed. release) tablet PO PRN ×2 (05:30→11:39)
[2017-09-05] MEDS: DOBUTamine-DoBUTrex 500mg/D5W 250 ML IV SCH (07:26)
[2017-09-05] MEDS ORDERED: heparin 1,000 units/ml 10ml inj HE ONE ×2 (08:00)
[2017-09-05] MEDS: amLODIPine 5mg tablet PO SCH (08:00)
[2017-09-05] MEDS ORDERED: heparin 1,000unit/ml 10ml vial 10 ML IV ONE (08:00)
[2017-09-05] MEDS ORDERED: albumin (human) 25% 100ml IV 100 ML IV PRN (08:00)
[2017-09-05] MEDS ORDERED: heparin 1,000 units/ml 10ml inj IV ONE (08:00)
[2017-09-05] MEDS: K and/or MAG REPLACEMENT MC SCH (08:00)
[2017-09-05] MEDS: carVEDilol 12.5mg tablet PO SCH (08:00)
[2017-09-05] MEDS ORDERED: epoetin 20,000 units/ml inj IV ONE (08:00)
[2017-09-05] MEDS: isosorbide mononitrate 30mg tab.SR.24H PO SCH (08:54)
[2017-09-05] MEDS: bumetanide 1mg tablet PO SCH (08:54)
[2017-09-05] MEDS: apixaban 2.5mg tablet PO SCH (08:54)
[2017-09-05 09:17] LABS: HEMATOCRIT 26.1 % (42.0-52.0); HEMOGLOBIN 8.6 g/dl (14.0-17.9); MEAN CORPUSCULAR HEMOGLOBIN 31.7 PG (27.0-31.0); MEAN CORPUSCULAR VOLUME 96.2 FL (78-98); MEAN PLATELET VOLUME 8.3 FL (7.4-10.4); PLATELET COUNT 116 X10'3 (140-440); RED BLOOD COUNT 2.72 X10'6 (4.70-6.10); RED CELL DISTRIBUTION WIDTH 17.9 % (11.5-14.5); WHITE BLOOD COUNT 3.8 X10'3 (4.5-11.0)
[2017-09-05 10:07] LABS: ALBUMIN 2.4 G/DL (3.4-5.0); ANION GAP 11 (8-16); BLOOD UREA NITROGEN 28 MG/DL (7-18); BUN/CREATININE RATIO 7.5 (5.4-32.0); CALCIUM 8.3 MG/DL (8.5-10.1); CHLORIDE 96 MMOL/L (99-107); CREATININE 3.75 MG/DL (0.60-1.10); GLUCOSE 197 MG/DL (70-104); POTASSIUM 4.6 MMOL/L (3.5-5.1); SODIUM 134 MMOL/L (135-145); TOTAL CARBON DIOXIDE 26.7 MMOL/L (24-32); eGFR 16 ML/MIN
== END 2017-09-05 16:30 | DRG 673 ==
LOC: PCU 3S 13:44
PROVIDERS: ADMIT Family Medicine; ATTEND Family Medicine
PROC: 0JH63XZ Insertion of Tunneled Vascular Access Device into Chest Subcutaneous Tissue and Fascia, Percutaneous Approach (ICD-10-PCS; principal; 2017-08-23)
PROC: 02HV33Z Insertion of Infusion Device into Superior Vena Cava, Percutaneous Approach (ICD-10-PCS; 2017-08-23)
PROC: B548ZZA Ultrasonography of Superior Vena Cava, Guidance (ICD-10-PCS; 2017-08-23)
PROC: 5A1D70Z Performance of Urinary Filtration, Intermittent, Less than 6 Hours Per Day (ICD-10-PCS; 2017-08-23)
PROC: 5A1D70Z Performance of Urinary Filtration, Intermittent, Less than 6 Hours Per Day (ICD-10-PCS; 2017-08-24)
PROC: 5A1D70Z Performance of Urinary Filtration, Intermittent, Less than 6 Hours Per Day (ICD-10-PCS; 2017-08-26)
PROC: 5A1D70Z Performance of Urinary Filtration, Intermittent, Less than 6 Hours Per Day (ICD-10-PCS; 2017-08-29)
PROC: 5A1D70Z Performance of Urinary Filtration, Intermittent, Less than 6 Hours Per Day (ICD-10-PCS; 2017-08-31)
PROC: 5A1D70Z Performance of Urinary Filtration, Intermittent, Less than 6 Hours Per Day (ICD-10-PCS; 2017-09-02)
PROC: 5A1D70Z Performance of Urinary Filtration, Intermittent, Less than 6 Hours Per Day (ICD-10-PCS; 2017-09-03)
PROC: 5A1D70Z Performance of Urinary Filtration, Intermittent, Less than 6 Hours Per Day (ICD-10-PCS; 2017-09-05)
DX: N17.9 Acute kidney failure, unspecified (principal); I50.23 Acute on chronic systolic (congestive) heart failure; J96.01 Acute respiratory failure with hypoxia; G93.40 Encephalopathy, unspecified; L03.116 Cellulitis of left lower limb; E87.1 Hypo-osmolality and hyponatremia; E11.22 Type 2 diabetes mellitus with diabetic chronic kidney disease; E11.51 Type 2 diabetes mellitus with diabetic peripheral angiopathy without gangrene; I13.0 Hypertensive heart and chronic kidney disease with heart failure and stage 1 through stage 4 chronic kidney disease, or unspecified chronic kidney disease; I42.9 Cardiomyopathy, unspecified; E11.649 Type 2 diabetes mellitus with hypoglycemia without coma; N18.9 Chronic kidney disease, unspecified; Z60.2 Problems related to living alone; I48.0 Paroxysmal atrial fibrillation; I48.2 Chronic atrial fibrillation; M50.90 Cervical disc disorder, unspecified, unspecified cervical region; D64.9 Anemia, unspecified; E78.5 Hyperlipidemia, unspecified; I25.10 Atherosclerotic heart disease of native coronary artery without angina pectoris; Z95.1 Presence of aortocoronary bypass graft; Z95.0 Presence of cardiac pacemaker; I25.2 Old myocardial infarction; Z79.01 Long term (current) use of anticoagulants; Z89.411 Acquired absence of right great toe; Z23 Encounter for immunization; Z79.899 Other long term (current) drug therapy
CPT/HCPCS: 36415; 36558; 36569; 71045; 76775; 76937; 77001; 80048; 80053; 80061; 81001; 82570; 82948; 83036; 83605; 83735; 83880; 84100; 84300; 85025; 85027; 85610; 85730; 87040; 87070; 87207; 87340; 90732; 90935; 93922; 93925; 94640; 94760; 97110; 97116; 97161; 97530; A4333; A6212; A6222; A6251; A6257; A6258; A6446; A6449; A9270; C1750; C1894; G0257; J0885; J1250; J1644; J1815; J1940; J2001; J2150; J2250; J2405; J3010; J7030; P9047

== ENCOUNTER 2017-09-21 21:10 | Inpatient (IN) | payer MEDICARE, BC ==
[~2017-09-21] VITALS: Ht 188 cm; Wt 94.4 kg
[~2017-09-21 21:10] MED LIST: AMIO200T27 PO; AMLO2.5T2 PO; APIX5TAB3 PO; ATOR40TA PO; BUME1TAB4 PO; CAPT12.53 PO; CARV12.5 PO; INSU300I; ISOS30TA6 PO; OXYC-658 PO
[2017-09-21] MEDS ORDERED: LORazepam 2 mg/ml vial IV ONE (21:20)
[2017-09-21] MEDS ORDERED: furosemide 10 MG/1 ML 10ml inj IV ONE (21:20)
[2017-09-21] MEDS ORDERED: morphine 4 MG/ML inj SYRINge IV ONE (21:20)
[2017-09-21] MEDS ORDERED: DOBUTamine-DoBUTrex 500mg/D5W 250 ML IV SCH (21:25)
[2017-09-21] MEDS ORDERED: iohexol 350MG/ML 100ml bottle IV ONE (21:31)
[2017-09-21 21:41] LABS: BASOPHILS % (AUTO) 0 % (0-1); EOSINOPHILS # (AUTO) 0.2 X10'3 (0-0.9); EOSINOPHILS % (AUTO) 3.1 % (0-6); HEMOGLOBIN 8.7 g/dl (14.0-17.9); LYMPHOCYTES # (AUTO) 0.5 X10'3 (1.1-4.8); LYMPHOCYTES % (AUTO) 7.1 % (21-51); MEAN CORPUSCULAR HEMOGLOBIN 30.1 PG (27.0-31.0); MEAN CORPUSCULAR HGB CONC 33.2 % (33.0-36.5); MEAN CORPUSCULAR VOLUME 90.6 FL (78-98); MONOCYTES # (AUTO) 0.6 X10'3 (0-0.9); MONOCYTES % (AUTO) 7.6 % (2-12); NEUTROPHILS # (AUTO) 6.4 X10'3 (1.8-7.7); NEUTROPHILS % (AUTO) 82.2 % (42-75); PLATELET COUNT 162 X10'3 (140-440); RED BLOOD COUNT 2.87 X10'6 (4.70-6.10); RED CELL DISTRIBUTION WIDTH 18.2 % (11.5-14.5); WHITE BLOOD COUNT 7.7 X10'3 (4.5-11.0)
[2017-09-21 21:52] LABS: INR 1.8 INR; PROTHROMBIN TIME 17.9 SECONDS (9.0-12.0)
[2017-09-21 21:55] LABS: ALANINE AMINOTRANSFERASE 11 U/L (12-78); ALBUMIN 2.2 G/DL (3.4-5.0); ALBUMIN/GLOBULIN RATIO 0.4 (1.1-1.5); ALKALINE PHOSPHATASE 207 IU/L (46-116); ANION GAP 11 (8-16); ASPARTATE AMINO TRANSFERASE 33 U/L (10-37); BILIRUBIN,TOTAL 1.5 MG/DL (0.1-1.0); BLOOD UREA NITROGEN 18 MG/DL (7-18); BUN/CREATININE RATIO 5.3 (5.4-32.0); CALCIUM 8.3 MG/DL (8.5-10.1); CHLORIDE 102 MMOL/L (99-107); CREATININE 3.38 MG/DL (0.60-1.10); GLUCOSE 113 MG/DL (70-104); POTASSIUM 4.4 MMOL/L (3.5-5.1); SODIUM 139 MMOL/L (135-145); TOTAL CARBON DIOXIDE 26.5 MMOL/L (24-32); TOTAL PROTEIN 7.1 G/DL (6.4-8.2); eGFR 18 ML/MIN
[2017-09-21 23:00] VITALS: BP 101/62
[2017-09-21] MEDS ORDERED: HYDROcodone/acetaminophen 5mg/325mg tablet PO PRN (23:00)
[2017-09-21] MEDS ORDERED: mag hydrox/Alum hydrox/simeth 30ml oral suspension PO PRN (23:00)
[2017-09-21] MEDS ORDERED: HYDROcodone/acetaminophen 10/325mg tab PO PRN (23:00)
[2017-09-21] MEDS ORDERED: acetaminophen 325mg tablet PO PRN (23:00)
[2017-09-21] MEDS ORDERED: magnesium hydroxide 30ml (MOM) UD suspension PO PRN (23:00)
[2017-09-21] MEDS ORDERED: ondansetron/PF 4mg/2ml inj IV PRN (23:00)
[2017-09-21 23:50] LABS: BILIRUBIN,DIRECT 0.8 MG/DL (0-0.3)
[2017-09-21 23:59] VITALS: BP 104/53
[2017-09-22] VITALS (14 sets, daily range): BP systolic 92–121; BP diastolic 47–95
[2017-09-22 00:36] LABS: ABG BASE EXCESS 1.8 mmol/L (-2.0-3.0); ABG HCO3 25.6 mmol/L (22.0-26.0); ABG OXYGEN SATURATION 93.7 % (95-98); ABG PCO2 (T) 37.2 mmHg (35.0-48.0); ABG PH (T) 7.456 (7.350-7.450); ABG PO2 (T) 72.9 mmHg (83-108); FCOHb 0.3 % (0.5-1.5); FLOW 15 L/min; FMetHb 0.1 % (0.3-1.12); FO2Hb 93.3 % (94-100); RESPIRATORY RATE (OBSERVED) 20 b/min; TOTAL HEMOGLOBIN 10.4 G/dl (14.0-18.0)
[2017-09-22] MEDS: oxyCODONE IR 5mg (immed. release) tablet PO PRN ×3 (00:48→13:46)
[2017-09-22] MEDS: DOBUTamine-DoBUTrex 500mg/D5W 250 ML IV SCH ×3 (01:13→22:57)
[2017-09-22 06:02] LABS: BASOPHILS % (AUTO) 0.1 % (0-1); EOSINOPHILS # (AUTO) 0.1 X10'3 (0-0.9); EOSINOPHILS % (AUTO) 0.9 % (0-6); HEMATOCRIT 25.6 % (42.0-52.0); HEMOGLOBIN 8.5 g/dl (14.0-17.9); LYMPHOCYTES # (AUTO) 0.5 X10'3 (1.1-4.8); MEAN CORPUSCULAR HEMOGLOBIN 29.8 PG (27.0-31.0); MEAN CORPUSCULAR VOLUME 90.3 FL (78-98); MEAN PLATELET VOLUME 8.4 FL (7.4-10.4); MONOCYTES # (AUTO) 0.6 X10'3 (0-0.9); NEUTROPHILS # (AUTO) 7.9 X10'3 (1.8-7.7); PLATELET COUNT 158 X10'3 (140-440); RED BLOOD COUNT 2.84 X10'6 (4.70-6.10); RED CELL DISTRIBUTION WIDTH 17.1 % (11.5-14.5); WHITE BLOOD COUNT 9.1 X10'3 (4.5-11.0)
[2017-09-22 06:31] LABS: ALANINE AMINOTRANSFERASE 11 U/L (12-78); ALBUMIN/GLOBULIN RATIO 0.4 (1.1-1.5); ALKALINE PHOSPHATASE 200 IU/L (46-116); ANION GAP 13 (8-16); ASPARTATE AMINO TRANSFERASE 36 U/L (10-37); BILIRUBIN,TOTAL 1.5 MG/DL (0.1-1.0); BLOOD UREA NITROGEN 22 MG/DL (7-18); CALCIUM 7.9 MG/DL (8.5-10.1); CHLORIDE 101 MMOL/L (99-107); CREATININE 3.66 MG/DL (0.60-1.10); GLUCOSE 129 MG/DL (70-104); MAGNESIUM 1.9 MG/DL (1.5-2.4); PHOSPHORUS 4.9 MG/DL (2.3-4.5); POTASSIUM 4.5 MMOL/L (3.5-5.1); SODIUM 139 MMOL/L (135-145); TOTAL CARBON DIOXIDE 25.2 MMOL/L (24-32); TOTAL PROTEIN 6.6 G/DL (6.4-8.2); eGFR 17 ML/MIN
[2017-09-22] MEDS: apixaban 5mg tablet PO SCH ×2 (07:17→19:45)
[2017-09-22] MEDS: atorvastatin 20mg tablet PO SCH (07:17)
[2017-09-22] MEDS: amiodarone 200mg tablet PO SCH (07:17)
[2017-09-22] MEDS: isosorbide mononitrate 30mg tab.SR.24H PO SCH (07:17)
[2017-09-22] MEDS: carVEDilol 12.5mg tablet PO SCH ×2 (07:18→19:45)
[2017-09-22] MEDS: bumetanide 1mg tablet PO SCH (08:00)
[2017-09-22] MEDS ORDERED: heparin 1,000unit/ml 10ml vial 10 ML IV ONE (08:56)
[2017-09-22] MEDS ORDERED: albumin (human) 25% 100ml IV 100 ML IV PRN (09:00)
[2017-09-22] MEDS ORDERED: heparin 1,000 units/ml 10ml inj HE ONE ×2 (09:00)
[2017-09-22] MEDS ORDERED: epoetin 20,000 units/ml inj IV ONE (09:00)
[2017-09-22] MEDS ORDERED: ceFAZolin 1GM/D5W- ADD-VANTAGE 50 ML IV SCH (11:20)
[2017-09-22] MEDS ORDERED: vancomycin/NS 1 GM ADD-VANTAGE 250 ML IV ONE (11:20)
[2017-09-22] MEDS: linezolid 600mg tablet PO SCH (19:45)
[2017-09-22] MEDS ORDERED: insulin glargine (Lantus) pen - multi-dose SQ SCH (21:00)
[2017-09-23] VITALS (12 sets, daily range): BP systolic 82–104; BP diastolic 41–67
[2017-09-23 06:31] LABS: ALANINE AMINOTRANSFERASE 11 U/L (12-78); ALBUMIN 1.7 G/DL (3.4-5.0); ALBUMIN/GLOBULIN RATIO 0.4 (1.1-1.5); ALKALINE PHOSPHATASE 170 IU/L (46-116); ANION GAP 9 (8-16); ASPARTATE AMINO TRANSFERASE 49 U/L (10-37); BILIRUBIN,TOTAL 1.2 MG/DL (0.1-1.0); BLOOD UREA NITROGEN 18 MG/DL (7-18); BUN/CREATININE RATIO 6.1 (5.4-32.0); CALCIUM 7.9 MG/DL (8.5-10.1); CHLORIDE 99 MMOL/L (99-107); CREATININE 2.93 MG/DL (0.60-1.10); GLUCOSE 186 MG/DL (70-104); MAGNESIUM 1.9 MG/DL (1.5-2.4); PHOSPHORUS 4.3 MG/DL (2.3-4.5); POTASSIUM 4.1 MMOL/L (3.5-5.1); SODIUM 134 MMOL/L (135-145); TOTAL CARBON DIOXIDE 25.6 MMOL/L (24-32); TOTAL PROTEIN 5.7 G/DL (6.4-8.2); eGFR 22 ML/MIN
[2017-09-23 06:43] LABS: BASOPHILS % (AUTO) 0.3 % (0-1); EOSINOPHILS # (AUTO) 0.1 X10'3 (0-0.9); EOSINOPHILS % (AUTO) 0.8 % (0-6); HEMATOCRIT 26.5 % (42.0-52.0); HEMOGLOBIN 8.6 g/dl (14.0-17.9); LYMPHOCYTES # (AUTO) 0.6 X10'3 (1.1-4.8); LYMPHOCYTES % (AUTO) 5.7 % (21-51); MEAN CORPUSCULAR HEMOGLOBIN 30.1 PG (27.0-31.0); MEAN CORPUSCULAR HGB CONC 32.6 % (33.0-36.5); MEAN CORPUSCULAR VOLUME 92.1 FL (78-98); MONOCYTES # (AUTO) 0.9 X10'3 (0-0.9); MONOCYTES % (AUTO) 8.4 % (2-12); NEUTROPHILS # (AUTO) 8.8 X10'3 (1.8-7.7); NEUTROPHILS % (AUTO) 84.8 % (42-75); PLATELET COUNT 157 X10'3 (140-440); RED BLOOD COUNT 2.88 X10'6 (4.70-6.10); WHITE BLOOD COUNT 10.4 X10'3 (4.5-11.0)
[2017-09-23] MEDS: apixaban 5mg tablet PO SCH ×2 (07:15→19:46)
[2017-09-23] MEDS: amiodarone 200mg tablet PO SCH (07:15)
[2017-09-23] MEDS: isosorbide mononitrate 30mg tab.SR.24H PO SCH (07:16)
[2017-09-23] MEDS: oxyCODONE IR 5mg (immed. release) tablet PO PRN ×3 (07:16→20:27)
[2017-09-23] MEDS: atorvastatin 20mg tablet PO SCH (07:17)
[2017-09-23] MEDS: linezolid 600mg tablet PO SCH ×2 (07:40→19:46)
[2017-09-23] MEDS: carVEDilol 12.5mg tablet PO SCH ×2 (08:00→19:46)
[2017-09-23] MEDS: bumetanide 1mg tablet PO SCH (08:00)
[2017-09-23] MEDS ORDERED: dextrose 50%-water 50ml dispensing syringe IV PRN ×2 (13:55)
[2017-09-23] MEDS ORDERED: MESSAGE TO PHARMACY PO ONE (13:55)
[2017-09-23] MEDS ORDERED: glucagon, human recombinant 1mg kit SUBCUT PRN (13:55)
[2017-09-23] MEDS ORDERED: dextrose ORAL solution 15 GM/59 ML bottle PO PRN ×2 (13:55)
[2017-09-23] MEDS: DOBUTamine-DoBUTrex 500mg/D5W 250 ML IV SCH (14:03)
[2017-09-23 14:40] LABS: CLARITY,URINE SLIGHTLY CLOUDY (Clear); COLOR,URINE AMBER (Yellow); GLUCOSE, URINE NEGATIVE (Neg); KETONES,URINE TRACE mg/dl (Neg); LEUKOCYTE ESTERASE ,URINE NEGATIVE (Neg); NITRITES, URINE NEGATIVE (Neg); OCCULT BLOOD,URINE SMALL (Neg); PROTEIN,URINE >=300 mg/dl (Neg); UROBILINOGEN,URINE 0.2 E.U/dL (0.2-1.0)
[2017-09-23 14:44] LABS: UA COLLECTION TYPE STRAIGHT CATH
[2017-09-23 14:47] LABS: BACTERIA,URINE 3+ /HPF (Neg); SQUAMOUS EPITHELIAL CELL,UR FEW /LPF (FEW)
[2017-09-23] MEDS: insulin Lispro (HumaLOG) vial - multi-dose SQ SCH (19:45)
[2017-09-23] MEDS: lactobacillus rhamnosus 10,000 MMU CELLS/CAPSULE PO SCH (19:46)
[2017-09-23] MEDS ORDERED: insulin glargine (Lantus) pen - multi-dose SQ SCH (21:00)
[2017-09-23] MEDS: insulin glargine (Lantus) pen - multi-dose SQ SCH (22:15)
[2017-09-24] VITALS (11 sets, daily range): BP systolic 87–106; BP diastolic 47–62
[2017-09-24] MEDS: oxyCODONE IR 5mg (immed. release) tablet PO PRN ×4 (02:52→23:15)
[2017-09-24 05:46] LABS: BASOPHILS % (AUTO) 0.2 % (0-1); EOSINOPHILS # (AUTO) 0.8 X10'3 (0-0.9); EOSINOPHILS % (AUTO) 10.1 % (0-6); HEMATOCRIT 24.3 % (42.0-52.0); HEMOGLOBIN 7.9 g/dl (14.0-17.9); LYMPHOCYTES # (AUTO) 0.6 X10'3 (1.1-4.8); LYMPHOCYTES % (AUTO) 8.5 % (21-51); MEAN CORPUSCULAR HEMOGLOBIN 29.3 PG (27.0-31.0); MEAN CORPUSCULAR HGB CONC 32.5 % (33.0-36.5); MEAN CORPUSCULAR VOLUME 90.1 FL (78-98); MEAN PLATELET VOLUME 8.6 FL (7.4-10.4); MONOCYTES # (AUTO) 0.6 X10'3 (0-0.9); MONOCYTES % (AUTO) 8.4 % (2-12); NEUTROPHILS # (AUTO) 5.5 X10'3 (1.8-7.7); NEUTROPHILS % (AUTO) 72.8 % (42-75); PLATELET COUNT 153 X10'3 (140-440); RED CELL DISTRIBUTION WIDTH 17.9 % (11.5-14.5); WHITE BLOOD COUNT 7.6 X10'3 (4.5-11.0)
[2017-09-24 06:11] LABS: ALANINE AMINOTRANSFERASE 14 U/L (12-78); ALBUMIN 1.9 G/DL (3.4-5.0); ALBUMIN/GLOBULIN RATIO 0.4 (1.1-1.5); ALKALINE PHOSPHATASE 171 IU/L (46-116); ANION GAP 9 (8-16); ASPARTATE AMINO TRANSFERASE 51 U/L (10-37); BLOOD UREA NITROGEN 26 MG/DL (7-18); CALCIUM 7.8 MG/DL (8.5-10.1); CHLORIDE 95 MMOL/L (99-107); GLUCOSE 192 MG/DL (70-104); MAGNESIUM 1.8 MG/DL (1.5-2.4); POTASSIUM 4.1 MMOL/L (3.5-5.1); SODIUM 131 MMOL/L (135-145); TOTAL CARBON DIOXIDE 27.5 MMOL/L (24-32); TOTAL PROTEIN 6.3 G/DL (6.4-8.2); eGFR 16 ML/MIN
[2017-09-24] MEDS: apixaban 5mg tablet PO SCH ×2 (07:44→19:21)
[2017-09-24] MEDS: linezolid 600mg tablet PO SCH ×2 (07:44→19:21)
[2017-09-24] MEDS: isosorbide mononitrate 30mg tab.SR.24H PO SCH (07:44)
[2017-09-24] MEDS: atorvastatin 20mg tablet PO SCH (07:44)
[2017-09-24] MEDS: lactobacillus rhamnosus 10,000 MMU CELLS/CAPSULE PO SCH ×2 (07:45→19:21)
[2017-09-24] MEDS: amiodarone 200mg tablet PO SCH (07:45)
[2017-09-24] MEDS: insulin Lispro (HumaLOG) vial - multi-dose SQ SCH (07:55)
[2017-09-24] MEDS ORDERED: albumin (human) 25% 100ml IV 100 ML IV PRN (08:00)
[2017-09-24] MEDS ORDERED: heparin 1,000unit/ml 10ml vial 10 ML IV ONE (08:00)
[2017-09-24] MEDS ORDERED: epoetin 20,000 units/ml inj IV ONE (08:00)
[2017-09-24] MEDS: carVEDilol 12.5mg tablet PO SCH ×2 (08:00→19:23)
[2017-09-24] MEDS ORDERED: heparin 1,000 units/ml 10ml inj HE ONE ×2 (08:00)
[2017-09-24] MEDS: bumetanide 1mg tablet PO SCH (08:00)
[2017-09-24] MEDS: DOBUTamine-DoBUTrex 500mg/D5W 250 ML IV SCH (09:02)
[2017-09-24 15:15] LABS: HBSAG SCREEN Negative (Negative)
[2017-09-24] MEDS: insulin glargine (Lantus) pen - multi-dose SQ SCH (22:19)
[2017-09-25] VITALS (9 sets, daily range): BP systolic 92–105; BP diastolic 52–65
[2017-09-25 05:31] LABS: BASOPHILS % (AUTO) 0.4 % (0-1); EOSINOPHILS # (AUTO) 0.6 X10'3 (0-0.9); EOSINOPHILS % (AUTO) 10.8 % (0-6); HEMATOCRIT 25.7 % (42.0-52.0); HEMOGLOBIN 8.4 g/dl (14.0-17.9); LYMPHOCYTES # (AUTO) 0.8 X10'3 (1.1-4.8); LYMPHOCYTES % (AUTO) 13.7 % (21-51); MEAN CORPUSCULAR HEMOGLOBIN 29.4 PG (27.0-31.0); MEAN CORPUSCULAR HGB CONC 32.8 % (33.0-36.5); MEAN CORPUSCULAR VOLUME 89.7 FL (78-98); MEAN PLATELET VOLUME 8.8 FL (7.4-10.4); MONOCYTES # (AUTO) 0.6 X10'3 (0-0.9); MONOCYTES % (AUTO) 10.3 % (2-12); NEUTROPHILS # (AUTO) 3.8 X10'3 (1.8-7.7); NEUTROPHILS % (AUTO) 64.8 % (42-75); PLATELET COUNT 150 X10'3 (140-440); RED BLOOD COUNT 2.86 X10'6 (4.70-6.10); RED CELL DISTRIBUTION WIDTH 18.1 % (11.5-14.5); WHITE BLOOD COUNT 5.9 X10'3 (4.5-11.0)
[2017-09-25 05:56] LABS: ALANINE AMINOTRANSFERASE 24 U/L (12-78); ALBUMIN 2.2 G/DL (3.4-5.0); ALBUMIN/GLOBULIN RATIO 0.5 (1.1-1.5); ALKALINE PHOSPHATASE 229 IU/L (46-116); ANION GAP 9 (8-16); ASPARTATE AMINO TRANSFERASE 63 U/L (10-37); BLOOD UREA NITROGEN 14 MG/DL (7-18); CALCIUM 8.1 MG/DL (8.5-10.1); CHLORIDE 97 MMOL/L (99-107); GLUCOSE 130 MG/DL (70-104); MAGNESIUM 1.8 MG/DL (1.5-2.4); PHOSPHORUS 2.8 MG/DL (2.3-4.5); SODIUM 134 MMOL/L (135-145); TOTAL CARBON DIOXIDE 28.2 MMOL/L (24-32); eGFR 23 ML/MIN
[2017-09-25] MEDS: DOBUTamine-DoBUTrex 500mg/D5W 250 ML IV SCH (07:04)
[2017-09-25] MEDS: bumetanide 1mg tablet PO SCH (07:55)
[2017-09-25] MEDS: carVEDilol 12.5mg tablet PO SCH ×2 (07:55→19:27)
[2017-09-25] MEDS: amiodarone 200mg tablet PO SCH (08:47)
[2017-09-25] MEDS: lactobacillus rhamnosus 10,000 MMU CELLS/CAPSULE PO SCH ×2 (08:48→19:15)
[2017-09-25] MEDS: apixaban 5mg tablet PO SCH ×2 (08:48→19:15)
[2017-09-25] MEDS: isosorbide mononitrate 30mg tab.SR.24H PO SCH (08:48)
[2017-09-25] MEDS: atorvastatin 20mg tablet PO SCH (08:48)
[2017-09-25] MEDS: linezolid 600mg tablet PO SCH ×2 (08:49→19:15)
[2017-09-25] MEDS: insulin Lispro (HumaLOG) vial - multi-dose SQ SCH ×3 (08:53→18:53)
[2017-09-25] MEDS: oxyCODONE IR 5mg (immed. release) tablet PO PRN ×3 (09:26→21:42)
[2017-09-25] MEDS: insulin glargine (Lantus) pen - multi-dose SQ SCH (21:41)
[2017-09-26 03:00] VITALS: BP 100/61
[2017-09-26 06:00] VITALS: BP 95/48
[2017-09-26 06:49] LABS: BASOPHILS % (AUTO) 0.4 % (0-1); EOSINOPHILS # (AUTO) 0.7 X10'3 (0-0.9); EOSINOPHILS % (AUTO) 12.4 % (0-6); HEMATOCRIT 25.6 % (42.0-52.0); HEMOGLOBIN 8.5 g/dl (14.0-17.9); LYMPHOCYTES # (AUTO) 0.9 X10'3 (1.1-4.8); LYMPHOCYTES % (AUTO) 17.5 % (21-51); MEAN CORPUSCULAR HEMOGLOBIN 29.5 PG (27.0-31.0); MEAN CORPUSCULAR HGB CONC 33.1 % (33.0-36.5); MEAN CORPUSCULAR VOLUME 89.1 FL (78-98); MEAN PLATELET VOLUME 8.8 FL (7.4-10.4); MONOCYTES # (AUTO) 0.5 X10'3 (0-0.9); MONOCYTES % (AUTO) 9.7 % (2-12); NEUTROPHILS # (AUTO) 3.2 X10'3 (1.8-7.7); PLATELET COUNT 138 X10'3 (140-440); RED BLOOD COUNT 2.88 X10'6 (4.70-6.10); RED CELL DISTRIBUTION WIDTH 18.2 % (11.5-14.5); WHITE BLOOD COUNT 5.3 X10'3 (4.5-11.0)
[2017-09-26 07:09] LABS: ALANINE AMINOTRANSFERASE 22 U/L (12-78); ALBUMIN 2.2 G/DL (3.4-5.0); ALBUMIN/GLOBULIN RATIO 0.5 (1.1-1.5); ALKALINE PHOSPHATASE 208 IU/L (46-116); ANION GAP 10 (8-16); ASPARTATE AMINO TRANSFERASE 44 U/L (10-37); BILIRUBIN,TOTAL 1.2 MG/DL (0.1-1.0); BLOOD UREA NITROGEN 17 MG/DL (7-18); BUN/CREATININE RATIO 4.6 (5.4-32.0); CALCIUM 8.6 MG/DL (8.5-10.1); CHLORIDE 95 MMOL/L (99-107); GLUCOSE 97 MG/DL (70-104); MAGNESIUM 1.9 MG/DL (1.5-2.4); PHOSPHORUS 3.6 MG/DL (2.3-4.5); POTASSIUM 4.1 MMOL/L (3.5-5.1); SODIUM 131 MMOL/L (135-145); TOTAL CARBON DIOXIDE 26.4 MMOL/L (24-32); TOTAL PROTEIN 6.9 G/DL (6.4-8.2); eGFR 16 ML/MIN
[2017-09-26] MEDS: bumetanide 1mg tablet PO SCH (08:00)
[2017-09-26] MEDS: carVEDilol 12.5mg tablet PO SCH (08:00)
[2017-09-26] MEDS: amiodarone 200mg tablet PO SCH (09:15)
[2017-09-26] MEDS: lactobacillus rhamnosus 10,000 MMU CELLS/CAPSULE PO SCH (09:16)
[2017-09-26] MEDS: atorvastatin 20mg tablet PO SCH (09:17)
[2017-09-26] MEDS: apixaban 5mg tablet PO SCH (09:17)
[2017-09-26] MEDS: linezolid 600mg tablet PO SCH (09:18)
[2017-09-26] MEDS: insulin Lispro (HumaLOG) vial - multi-dose SQ SCH ×2 (09:23→14:02)
[2017-09-26] MEDS: isosorbide mononitrate 30mg tab.SR.24H PO SCH (09:24)
[2017-09-26] MEDS: oxyCODONE IR 5mg (immed. release) tablet PO PRN (10:05)
[2017-09-26 11:00] VITALS: BP 106/64
[2017-09-26] MEDS ORDERED: LINE600T6 PO (14:03)
[2017-09-26 15:00] VITALS: BP 98/56
== END 2017-09-26 16:40 | DRG 314 ==
LOC: ER 21:11 → PCU 3S 22:56 → CMPBEDREQ 09-22 02:00 → PCU 3S 09-22 22:52
PROVIDERS: ADMIT Internal Medicine Critical Care Medicine; ATTEND Internal Medicine Critical Care Medicine
PROC: B32T1ZZ Computerized Tomography (CT Scan) of Left Pulmonary Artery using Low Osmolar Contrast (ICD-10-PCS; 2017-09-21)
PROC: B3201ZZ Computerized Tomography (CT Scan) of Thoracic Aorta using Low Osmolar Contrast (ICD-10-PCS; 2017-09-21)
PROC: B32S1ZZ Computerized Tomography (CT Scan) of Right Pulmonary Artery using Low Osmolar Contrast (ICD-10-PCS; 2017-09-21)
PROC: 5A1D70Z Performance of Urinary Filtration, Intermittent, Less than 6 Hours Per Day (ICD-10-PCS; 2017-09-22)
PROC: 5A1D70Z Performance of Urinary Filtration, Intermittent, Less than 6 Hours Per Day (ICD-10-PCS; principal; 2017-09-24)
DX: T80.211A Bloodstream infection due to central venous catheter, initial encounter (principal); A41.9 Sepsis, unspecified organism; N18.6 End stage renal disease; I13.2 Hypertensive heart and chronic kidney disease with heart failure and with stage 5 chronic kidney disease, or end stage renal disease; N17.9 Acute kidney failure, unspecified; I50.84 End stage heart failure; B95.2 Enterococcus as the cause of diseases classified elsewhere; E11.22 Type 2 diabetes mellitus with diabetic chronic kidney disease; I48.91 Unspecified atrial fibrillation; N50.89 Other specified disorders of the male genital organs; R33.9 Retention of urine, unspecified; Z16.21 Resistance to vancomycin; E78.00 Pure hypercholesterolemia, unspecified; Y84.1 Kidney dialysis as the cause of abnormal reaction of the patient, or of later complication, without mention of misadventure at the time of the procedure; I25.10 Atherosclerotic heart disease of native coronary artery without angina pectoris; Z60.2 Problems related to living alone; I25.2 Old myocardial infarction; Z95.1 Presence of aortocoronary bypass graft; Z99.2 Dependence on renal dialysis; Z79.01 Long term (current) use of anticoagulants; Z79.899 Other long term (current) drug therapy; Z79.4 Long term (current) use of insulin; Y92.89 Other specified places as the place of occurrence of the external cause
CPT/HCPCS: 36415; 36600; 71045; 71275; 80053; 81001; 82248; 82803; 82948; 83735; 83880; 84100; 84439; 84443; 85018; 85025; 85610; 87040; 87070; 87077; 87088; 87186; 87340; 93005; 93306; 93970; 94760; 96365; 96375; 97116; 97162; 97530; 99291; A4353; A4620; A6212; A6213; A6449; G0257; J0885; J1250; J1644; J1815; J1940; J2405; J3370; J7030; Q9967

== ENCOUNTER 2017-09-28 15:41 | Inpatient (IN) | payer MEDICARE, BC ==
[~2017-09-28] VITALS: Ht 185.4 cm; Wt 108.5 kg
[~2017-09-28 15:41] MED LIST changes: -AMLO2.5T2 PO; +LINE600T6 PO
[2017-09-28] MEDS ORDERED: propofol 1000mg/100ml bottle 100 ML IV ONE (15:50)
[2017-09-28] MEDS ORDERED: rocuronium 10mg/ml inj IV ONE (15:50)
[2017-09-28 16:04] LABS: BASOPHILS % (AUTO) 0.4 % (0-1); EOSINOPHILS # (AUTO) 0.8 X10'3 (0-0.9); EOSINOPHILS % (AUTO) 14.9 % (0-6); HEMOGLOBIN 7.7 g/dl (14.0-17.9); MEAN CORPUSCULAR HEMOGLOBIN 29.5 PG (27.0-31.0); MEAN CORPUSCULAR HGB CONC 33.3 % (33.0-36.5); MEAN CORPUSCULAR VOLUME 88.7 FL (78-98); MEAN PLATELET VOLUME 9.1 FL (7.4-10.4); MONOCYTES # (AUTO) 0.6 X10'3 (0-0.9); MONOCYTES % (AUTO) 10.7 % (2-12); NEUTROPHILS # (AUTO) 2.8 X10'3 (1.8-7.7); PLATELET COUNT 107 X10'3 (140-440); RED BLOOD COUNT 2.59 X10'6 (4.70-6.10); RED CELL DISTRIBUTION WIDTH 18.5 % (11.5-14.5); WHITE BLOOD COUNT 5.2 X10'3 (4.5-11.0)
[2017-09-28] MEDS ORDERED: midazolam 100mg in NS 100ml 100 ML IV ONE (16:05)
[2017-09-28 16:14] LABS: INR 1.7 INR; PARTIAL THROMBOPLASTIN TIME 46 SECONDS (22-32); PROTHROMBIN TIME 17.1 SECONDS (9.0-12.0)
[2017-09-28 16:18] LABS: ALANINE AMINOTRANSFERASE 17 U/L (12-78); ALBUMIN 1.8 G/DL (3.4-5.0); ALBUMIN/GLOBULIN RATIO 0.5 (1.1-1.5); ALKALINE PHOSPHATASE 168 IU/L (46-116); ANION GAP 9 (8-16); ASPARTATE AMINO TRANSFERASE 34 U/L (10-37); BILIRUBIN,TOTAL 1.1 MG/DL (0.1-1.0); BLOOD UREA NITROGEN 31 MG/DL (7-18); BUN/CREATININE RATIO 5.7 (5.4-32.0); CALCIUM 7.8 MG/DL (8.5-10.1); CHLORIDE 94 MMOL/L (99-107); CREATININE 5.41 MG/DL (0.60-1.10); ETHANOL < 0.010 GM/DL (0.0-0.010); GLUCOSE 139 MG/DL (70-104); POTASSIUM 4.8 MMOL/L (3.5-5.1); SODIUM 129 MMOL/L (135-145); TOTAL CARBON DIOXIDE 26.4 MMOL/L (24-32); TOTAL PROTEIN 5.8 G/DL (6.4-8.2); eGFR 11 ML/MIN
[2017-09-28] MEDS ORDERED: iohexol 350MG/ML 100ml bottle IV ONE (16:30)
[2017-09-28 17:20] LABS: ABG BASE EXCESS 0.7 mmol/L (-2.0-3.0); ABG HCO3 24.2 mmol/L (22.0-26.0); ABG OXYGEN SATURATION 95.1 % (95-98); ABG PCO2 (T) 34.5 mmHg (35.0-48.0); ABG PH (T) 7.464 (7.350-7.450); ABG PO2 (T) 73.1 mmHg (83-108); FCOHb 0.7 % (0.5-1.5); FO2Hb 94.4 % (94-100); MINUTE VOLUME 8 L/min; PEEP 5 cm H2O; RESPIRATORY RATE 20 b/min; RESPIRATORY RATE (OBSERVED) 20 b/min; TIDAL VOLUME 450 mL; TOTAL HEMOGLOBIN 9.3 G/dl (14.0-18.0)
[2017-09-28] MEDS ORDERED: ACET650T12 PO (18:49)
[2017-09-28] MEDS ORDERED: LACT1CAP65 PO (18:49)
[2017-09-28] MEDS ORDERED: acetaminophen 325mg tablet PO PRN ×2 (20:00)
[2017-09-28] MEDS ORDERED: ondansetron/PF 4mg/2ml inj IV PRN (20:00)
[2017-09-28 21:19] VITALS: BP 93/62
[2017-09-28] MEDS: normal saline 1000ml 1,000 ML IV SCH (21:37)
[2017-09-28] MEDS: midazolam 100mg in NS 100ml 100 ML IV PRN (21:39)
[2017-09-28] MEDS: linezolid 600mg/300ml PREMIX 300 ML IV SCH (21:44)
[2017-09-28 22:00] VITALS: BP 91/61
[2017-09-28 23:00] VITALS: BP 90/53
[2017-09-29] VITALS (24 sets, daily range): BP systolic 83–136; BP diastolic 51–79
[2017-09-29] MEDS ORDERED: NORepinephrine 8mg/ 250ml NS 250 ML IV ONE (00:38)
[2017-09-29] MEDS: NORepinephrine 8mg/ 250ml NS 250 ML IV SCH ×4 (00:51→21:36)
[2017-09-29] MEDS: morphine 4 MG/ML inj SYRINge IV PRN ×3 (01:50→21:28)
[2017-09-29 03:47] LABS: BASOPHILS % (AUTO) 0.4 % (0-1); EOSINOPHILS # (AUTO) 0.5 X10'3 (0-0.9); EOSINOPHILS % (AUTO) 11.5 % (0-6); HEMATOCRIT 24.2 % (42.0-52.0); LYMPHOCYTES # (AUTO) 0.7 X10'3 (1.1-4.8); LYMPHOCYTES % (AUTO) 15.3 % (21-51); MEAN CORPUSCULAR HEMOGLOBIN 29.4 PG (27.0-31.0); MEAN CORPUSCULAR HGB CONC 32.9 % (33.0-36.5); MEAN CORPUSCULAR VOLUME 89.3 FL (78-98); MEAN PLATELET VOLUME 9.2 FL (7.4-10.4); MONOCYTES # (AUTO) 0.5 X10'3 (0-0.9); NEUTROPHILS # (AUTO) 2.8 X10'3 (1.8-7.7); NEUTROPHILS % (AUTO) 61.8 % (42-75); PLATELET COUNT 109 X10'3 (140-440); RED BLOOD COUNT 2.71 X10'6 (4.70-6.10); RED CELL DISTRIBUTION WIDTH 18.4 % (11.5-14.5); WHITE BLOOD COUNT 4.6 X10'3 (4.5-11.0)
[2017-09-29 04:12] LABS: ALANINE AMINOTRANSFERASE 12 U/L (12-78); ALBUMIN 1.5 G/DL (3.4-5.0); ALBUMIN/GLOBULIN RATIO 0.4 (1.1-1.5); ALKALINE PHOSPHATASE 150 IU/L (46-116); ANION GAP 10 (8-16); ASPARTATE AMINO TRANSFERASE 24 U/L (10-37); BILIRUBIN,TOTAL 1.2 MG/DL (0.1-1.0); BLOOD UREA NITROGEN 33 MG/DL (7-18); BUN/CREATININE RATIO 6.2 (5.4-32.0); CALCIUM 7.6 MG/DL (8.5-10.1); CHLORIDE 94 MMOL/L (99-107); CREATININE 5.35 MG/DL (0.60-1.10); GLUCOSE 171 MG/DL (70-104); PHOSPHORUS 6.1 MG/DL (2.3-4.5); POTASSIUM 4.6 MMOL/L (3.5-5.1); SODIUM 130 MMOL/L (135-145); TOTAL CARBON DIOXIDE 25.8 MMOL/L (24-32); TROPONIN I < 0.04 NG/ML (0.0-0.05); eGFR 11 ML/MIN
[2017-09-29 05:06] LABS: ABG BASE EXCESS -0.9 mmol/L (-2.0-3.0); ABG HCO3 22.9 mmol/L (22.0-26.0); ABG OXYGEN SATURATION 97.3 % (95-98); ABG PCO2 (T) 33.1 mmHg (35.0-48.0); ABG PH (T) 7.454 (7.350-7.450); ABG PO2 (T) 96.3 mmHg (83-108); ALLEN'S TEST Positive; FCOHb 0.1 % (0.5-1.5); FMetHb 0.2 % (0.3-1.12); MINUTE VOLUME 8 L/min; PATIENT TEMPERATURE 36.2; PEEP 5 cm H2O; RESPIRATORY RATE 16 b/min; RESPIRATORY RATE (OBSERVED) 16 b/min; TIDAL VOLUME 450 mL
[2017-09-29] MEDS ORDERED: oxyCODONE IR 5mg (immed. release) tablet PO PRN (05:40)
[2017-09-29] MEDS: carVEDilol 12.5mg tablet PO SCH ×2 (07:51→21:28)
[2017-09-29] MEDS ORDERED: isosorbide mononitrate 30mg tab.SR.24H PO SCH (08:00)
[2017-09-29] MEDS: linezolid 600mg/300ml PREMIX 300 ML IV SCH (08:00)
[2017-09-29] MEDS: bumetanide 1mg tablet PO SCH (08:00)
[2017-09-29] MEDS ORDERED: heparin, porcine 5000 units/ml vial SQ SCH (08:00)
[2017-09-29] MEDS: lactobacillus rhamnosus 10,000 MMU CELLS/CAPSULE PO SCH ×2 (08:00→21:27)
[2017-09-29] MEDS ORDERED: pantoprazole 40 MG vial IV SCH (08:00)
[2017-09-29] MEDS: isosorbide dinitrate 5mg tablet PO SCH ×2 (08:50→21:31)
[2017-09-29] MEDS: amiodarone 200mg tablet PO SCH (08:50)
[2017-09-29] MEDS: normal saline 1000ml 1,000 ML IV SCH (09:19)
[2017-09-29] MEDS ORDERED: tPA-cathflo 2 MG/2 ml IV flush IVF ONE (10:30)
[2017-09-29] MEDS ORDERED: iohexol 300mg/ml 100ml inj. ONE (11:21)
[2017-09-29] MEDS ORDERED: magnesium 4gm in 100ml NS 100 ML IV PRN (12:50)
[2017-09-29] MEDS ORDERED: sodium phosphate inj. 30 MMOL in normal saline 250ml IV soln 250 ML IV PRN (12:50)
[2017-09-29] MEDS ORDERED: potassium Cl 20mEq/100mL bag 100 ML IV PRN (12:50)
[2017-09-29] MEDS ORDERED: calcium chloride inj. 1,000 MG in normal saline 100ml IV soln 100 ML IV PRN (12:50)
[2017-09-29] MEDS: Duosol 4K/3 Ca (w/calcium) 5,000 ML HE SCH ×6 (14:06→22:50)
[2017-09-29 15:06] LABS: LACTATE DEHYDROGENASE 207 U/L (85-227)
[2017-09-29 16:28] LABS: BASOPHILS % (AUTO) 0.5 % (0-1); EOSINOPHILS # (AUTO) 0.7 X10'3 (0-0.9); EOSINOPHILS % (AUTO) 9.3 % (0-6); HEMATOCRIT 26.8 % (42.0-52.0); HEMOGLOBIN 8.7 g/dl (14.0-17.9); LYMPHOCYTES # (AUTO) 0.8 X10'3 (1.1-4.8); MEAN CORPUSCULAR HEMOGLOBIN 29.2 PG (27.0-31.0); MEAN CORPUSCULAR HGB CONC 32.6 % (33.0-36.5); MEAN CORPUSCULAR VOLUME 89.6 FL (78-98); MEAN PLATELET VOLUME 8.8 FL (7.4-10.4); MONOCYTES # (AUTO) 0.6 X10'3 (0-0.9); MONOCYTES % (AUTO) 8.5 % (2-12); NEUTROPHILS # (AUTO) 5.4 X10'3 (1.8-7.7); NEUTROPHILS % (AUTO) 70.7 % (42-75); PLATELET COUNT 132 X10'3 (140-440); RED BLOOD COUNT 2.99 X10'6 (4.70-6.10); RED CELL DISTRIBUTION WIDTH 18.7 % (11.5-14.5); WHITE BLOOD COUNT 7.6 X10'3 (4.5-11.0)
[2017-09-29 16:35] LABS: ANION GAP 13 (8-16); BLOOD UREA NITROGEN 33 MG/DL (7-18); BUN/CREATININE RATIO 6.6 (5.4-32.0); CHLORIDE 94 MMOL/L (99-107); CREATININE 5.03 MG/DL (0.60-1.10); GLUCOSE 180 MG/DL (70-104); MAGNESIUM 1.8 MG/DL (1.5-2.4); PHOSPHORUS 5.8 MG/DL (2.3-4.5); POTASSIUM 4.7 MMOL/L (3.5-5.1); SODIUM 130 MMOL/L (135-145); TOTAL CARBON DIOXIDE 23.5 MMOL/L (24-32); eGFR 12 ML/MIN
[2017-09-29 16:36] LABS: ALBUMIN 1.8 G/DL (3.4-5.0)
[2017-09-29 17:15] LABS: BASOPHILS % (AUTO) 0.5 % (0-1); EOSINOPHILS # (AUTO) 0.8 X10'3 (0-0.9); EOSINOPHILS % (AUTO) 9.6 % (0-6); HEMATOCRIT 26.5 % (42.0-52.0); HEMOGLOBIN 8.8 g/dl (14.0-17.9); LYMPHOCYTES # (AUTO) 0.8 X10'3 (1.1-4.8); LYMPHOCYTES % (AUTO) 10.5 % (21-51); MEAN CORPUSCULAR HEMOGLOBIN 29.2 PG (27.0-31.0); MEAN CORPUSCULAR VOLUME 88.4 FL (78-98); MEAN PLATELET VOLUME 8.8 FL (7.4-10.4); MONOCYTES # (AUTO) 0.7 X10'3 (0-0.9); MONOCYTES % (AUTO) 8.2 % (2-12); NEUTROPHILS # (AUTO) 5.7 X10'3 (1.8-7.7); NEUTROPHILS % (AUTO) 71.2 % (42-75); PLATELET COUNT 120 X10'3 (140-440); RED CELL DISTRIBUTION WIDTH 18.3 % (11.5-14.5)
[2017-09-29 17:27] LABS: ALBUMIN 1.8 G/DL (3.4-5.0); ANION GAP 12 (8-16); BLOOD UREA NITROGEN 32 MG/DL (7-18); BUN/CREATININE RATIO 6.6 (5.4-32.0); CHLORIDE 94 MMOL/L (99-107); CREATININE 4.86 MG/DL (0.60-1.10); GLUCOSE 180 MG/DL (70-104); MAGNESIUM 1.8 MG/DL (1.5-2.4); PHOSPHORUS 5.6 MG/DL (2.3-4.5); POTASSIUM 4.7 MMOL/L (3.5-5.1); SODIUM 130 MMOL/L (135-145); TOTAL CARBON DIOXIDE 24.4 MMOL/L (24-32); eGFR 12 ML/MIN
[2017-09-29 18:10] LABS: BASOPHILS % (AUTO) 0.2 % (0-1); EOSINOPHILS # (AUTO) 0.7 X10'3 (0-0.9); EOSINOPHILS % (AUTO) 8.9 % (0-6); HEMATOCRIT 26.5 % (42.0-52.0); HEMOGLOBIN 8.9 g/dl (14.0-17.9); LYMPHOCYTES # (AUTO) 0.9 X10'3 (1.1-4.8); LYMPHOCYTES % (AUTO) 11.2 % (21-51); MEAN CORPUSCULAR HEMOGLOBIN 29.5 PG (27.0-31.0); MEAN CORPUSCULAR HGB CONC 33.4 % (33.0-36.5); MEAN CORPUSCULAR VOLUME 88.5 FL (78-98); MEAN PLATELET VOLUME 8.6 FL (7.4-10.4); MONOCYTES # (AUTO) 0.7 X10'3 (0-0.9); MONOCYTES % (AUTO) 8.1 % (2-12); NEUTROPHILS # (AUTO) 5.8 X10'3 (1.8-7.7); NEUTROPHILS % (AUTO) 71.6 % (42-75); PLATELET COUNT 124 X10'3 (140-440); RED CELL DISTRIBUTION WIDTH 18.5 % (11.5-14.5); WHITE BLOOD COUNT 8.1 X10'3 (4.5-11.0)
[2017-09-29 18:22] LABS: ALBUMIN 1.8 G/DL (3.4-5.0); ANION GAP 11 (8-16); BLOOD UREA NITROGEN 31 MG/DL (7-18); BUN/CREATININE RATIO 6.6 (5.4-32.0); CHLORIDE 95 MMOL/L (99-107); CREATININE 4.69 MG/DL (0.60-1.10); GLUCOSE 177 MG/DL (70-104); MAGNESIUM 1.8 MG/DL (1.5-2.4); PHOSPHORUS 5.5 MG/DL (2.3-4.5); POTASSIUM 4.7 MMOL/L (3.5-5.1); SODIUM 130 MMOL/L (135-145); TOTAL CARBON DIOXIDE 23.9 MMOL/L (24-32); eGFR 13 ML/MIN
[2017-09-29 20:23] LABS: BASOPHILS % (AUTO) 0.4 % (0-1); EOSINOPHILS # (AUTO) 0.7 X10'3 (0-0.9); HEMATOCRIT 26.8 % (42.0-52.0); HEMOGLOBIN 8.9 g/dl (14.0-17.9); LYMPHOCYTES # (AUTO) 0.7 X10'3 (1.1-4.8); LYMPHOCYTES % (AUTO) 8.9 % (21-51); MEAN CORPUSCULAR HEMOGLOBIN 29.3 PG (27.0-31.0); MEAN CORPUSCULAR VOLUME 88.8 FL (78-98); MEAN PLATELET VOLUME 8.4 FL (7.4-10.4); MONOCYTES # (AUTO) 0.7 X10'3 (0-0.9); MONOCYTES % (AUTO) 8.2 % (2-12); NEUTROPHILS # (AUTO) 5.9 X10'3 (1.8-7.7); NEUTROPHILS % (AUTO) 73.5 % (42-75); PLATELET COUNT 129 X10'3 (140-440); RED BLOOD COUNT 3.02 X10'6 (4.70-6.10); RED CELL DISTRIBUTION WIDTH 18.1 % (11.5-14.5)
[2017-09-29 20:26] LABS: ALBUMIN 1.7 G/DL (3.4-5.0); ANION GAP 13 (8-16); BLOOD UREA NITROGEN 30 MG/DL (7-18); BUN/CREATININE RATIO 6.9 (5.4-32.0); CHLORIDE 96 MMOL/L (99-107); CREATININE 4.36 MG/DL (0.60-1.10); GLUCOSE 170 MG/DL (70-104); MAGNESIUM 1.8 MG/DL (1.5-2.4); PHOSPHORUS 5.2 MG/DL (2.3-4.5); POTASSIUM 4.7 MMOL/L (3.5-5.1); SODIUM 132 MMOL/L (135-145); TOTAL CARBON DIOXIDE 23.3 MMOL/L (24-32); eGFR 14 ML/MIN
[2017-09-29] MEDS: insulin glargine (Lantus) pen - multi-dose SQ SCH (21:00)
[2017-09-29] MEDS: atorvastatin 20mg tablet PO SCH (21:28)
[2017-09-29] MEDS: famotidine/PF 10 mg/ml inj IV SCH (21:28)
[2017-09-29] MEDS: apixaban 5mg tablet PO SCH (21:28)
[2017-09-29] MEDS: mineral oil/petrolatum ophthal oint EACHEYE SCH (21:29)
[2017-09-29] MEDS: linezolid 600mg tablet PO SCH (21:32)
[2017-09-30] VITALS (24 sets, daily range): BP systolic 109–137; BP diastolic 42–78
[2017-09-30] MEDS: mineral oil/petrolatum ophthal oint EACHEYE SCH ×4 (01:09→20:48)
[2017-09-30] MEDS: Duosol 4K/3 Ca (w/calcium) 5,000 ML HE SCH ×14 (01:09→22:16)
[2017-09-30 02:02] LABS: BASOPHILS % (AUTO) 0.5 % (0-1); EOSINOPHILS # (AUTO) 0.7 X10'3 (0-0.9); LYMPHOCYTES # (AUTO) 0.8 X10'3 (1.1-4.8); LYMPHOCYTES % (AUTO) 11.3 % (21-51); MEAN CORPUSCULAR HEMOGLOBIN 29.4 PG (27.0-31.0); MEAN CORPUSCULAR HGB CONC 33.1 % (33.0-36.5); MEAN CORPUSCULAR VOLUME 88.6 FL (78-98); MEAN PLATELET VOLUME 9.1 FL (7.4-10.4); MONOCYTES # (AUTO) 0.5 X10'3 (0-0.9); MONOCYTES % (AUTO) 7.4 % (2-12); NEUTROPHILS # (AUTO) 5.2 X10'3 (1.8-7.7); NEUTROPHILS % (AUTO) 70.8 % (42-75); PLATELET COUNT 132 X10'3 (140-440); RED BLOOD COUNT 3.05 X10'6 (4.70-6.10); RED CELL DISTRIBUTION WIDTH 18.8 % (11.5-14.5); WHITE BLOOD COUNT 7.3 X10'3 (4.5-11.0)
[2017-09-30 02:11] LABS: ALANINE AMINOTRANSFERASE 15 U/L (12-78); ALBUMIN 1.7 G/DL (3.4-5.0); ALBUMIN/GLOBULIN RATIO 0.4 (1.1-1.5); ALKALINE PHOSPHATASE 165 IU/L (46-116); ANION GAP 11 (8-16); ASPARTATE AMINO TRANSFERASE 31 U/L (10-37); BILIRUBIN,TOTAL 1.8 MG/DL (0.1-1.0); BLOOD UREA NITROGEN 25 MG/DL (7-18); BUN/CREATININE RATIO 6.7 (5.4-32.0); CALCIUM 7.9 MG/DL (8.5-10.1); CHLORIDE 98 MMOL/L (99-107); CREATININE 3.72 MG/DL (0.60-1.10); GLUCOSE 166 MG/DL (70-104); POTASSIUM 4.7 MMOL/L (3.5-5.1); SODIUM 132 MMOL/L (135-145); TOTAL CARBON DIOXIDE 23.5 MMOL/L (24-32); TOTAL PROTEIN 5.8 G/DL (6.4-8.2); eGFR 16 ML/MIN
[2017-09-30 02:13] LABS: MAGNESIUM 1.9 MG/DL (1.5-2.4); PHOSPHORUS 4.4 MG/DL (2.3-4.5); PREALBUMIN 7.9 MG/DL (19-36)
[2017-09-30] MEDS: midazolam 100mg in NS 100ml 100 ML IV PRN (02:47)
[2017-09-30] MEDS: NORepinephrine 8mg/ 250ml NS 250 ML IV SCH ×8 (02:48→23:24)
[2017-09-30] MEDS ORDERED: dextrose ORAL solution 15 GM/59 ML bottle PO PRN ×2 (03:40)
[2017-09-30] MEDS ORDERED: glucagon, human recombinant 1mg kit SUBCUT PRN (03:40)
[2017-09-30] MEDS ORDERED: MESSAGE TO PHARMACY PO ONE (03:40)
[2017-09-30] MEDS ORDERED: dextrose 50%-water 50ml dispensing syringe IV PRN ×2 (03:40)
[2017-09-30 03:41] LABS: ABG BASE EXCESS -1.3 mmol/L (-2.0-3.0); ABG HCO3 23.2 mmol/L (22.0-26.0); ABG OXYGEN SATURATION 95.6 % (95-98); ABG PCO2 (T) 36.3 mmHg (35.0-48.0); ABG PH (T) 7.419 (7.350-7.450); ABG PO2 (T) 77.9 mmHg (83-108); ALLEN'S TEST Positive; FCOHb 0.9 % (0.5-1.5); FMetHb 0.2 % (0.3-1.12); FO2Hb 94.5 % (94-100); MINUTE VOLUME 8 L/min; PEEP 5 cm H2O; RESPIRATORY RATE 16 b/min; RESPIRATORY RATE (OBSERVED) 16 b/min; TIDAL VOLUME 450 mL; TOTAL HEMOGLOBIN 10.1 G/dl (14.0-18.0)
[2017-09-30 07:13] LABS: BASOPHILS % (AUTO) 0.5 % (0-1); EOSINOPHILS # (AUTO) 0.6 X10'3 (0-0.9); EOSINOPHILS % (AUTO) 9.8 % (0-6); HEMATOCRIT 24.4 % (42.0-52.0); HEMOGLOBIN 8.2 g/dl (14.0-17.9); LYMPHOCYTES # (AUTO) 0.8 X10'3 (1.1-4.8); LYMPHOCYTES % (AUTO) 12.7 % (21-51); MEAN CORPUSCULAR HEMOGLOBIN 29.5 PG (27.0-31.0); MEAN CORPUSCULAR HGB CONC 33.6 % (33.0-36.5); MEAN CORPUSCULAR VOLUME 87.8 FL (78-98); MEAN PLATELET VOLUME 8.6 FL (7.4-10.4); MONOCYTES # (AUTO) 0.5 X10'3 (0-0.9); MONOCYTES % (AUTO) 8.4 % (2-12); NEUTROPHILS # (AUTO) 4.5 X10'3 (1.8-7.7); NEUTROPHILS % (AUTO) 68.6 % (42-75); PLATELET COUNT 106 X10'3 (140-440); RED BLOOD COUNT 2.77 X10'6 (4.70-6.10); RED CELL DISTRIBUTION WIDTH 17.8 % (11.5-14.5); WHITE BLOOD COUNT 6.5 X10'3 (4.5-11.0)
[2017-09-30 07:24] LABS: ALBUMIN 1.4 G/DL (3.4-5.0); ANION GAP 12 (8-16); BLOOD UREA NITROGEN 20 MG/DL (7-18); BUN/CREATININE RATIO 7.1 (5.4-32.0); CHLORIDE 103 MMOL/L (99-107); CREATININE 2.83 MG/DL (0.60-1.10); GLUCOSE 155 MG/DL (70-104); PHOSPHORUS 3.4 MG/DL (2.3-4.5); SODIUM 136 MMOL/L (135-145); TOTAL CARBON DIOXIDE 20.6 MMOL/L (24-32); eGFR 22 ML/MIN
[2017-09-30] MEDS: isosorbide dinitrate 5mg tablet PO SCH ×2 (07:42→20:00)
[2017-09-30] MEDS: amiodarone 200mg tablet PO SCH (07:42)
[2017-09-30] MEDS: apixaban 5mg tablet PO SCH ×2 (07:42→20:51)
[2017-09-30] MEDS: lactobacillus rhamnosus 10,000 MMU CELLS/CAPSULE PO SCH ×2 (07:42→20:53)
[2017-09-30] MEDS: famotidine/PF 10 mg/ml inj IV SCH ×2 (07:43→20:49)
[2017-09-30] MEDS: carVEDilol 12.5mg tablet PO SCH (08:00)
[2017-09-30] MEDS ORDERED: lisinopril 10 MG tablet PO SCH (08:00)
[2017-09-30 08:09] LABS: LDL CHOLESTEROL 22 MG/DL (50-100); MAGNESIUM 1.4 MG/DL (1.5-2.4)
[2017-09-30] MEDS: linezolid 600mg tablet PO SCH ×2 (08:45→20:51)
[2017-09-30] MEDS: insulin regular, human vial - multi-dose SQ SCH ×3 (08:59→20:11)
[2017-09-30] MEDS: bumetanide 1mg tablet PO SCH (10:55)
[2017-09-30] MEDS ORDERED: levoFLOXACIN-Levaquin 500mg/D5 100 ML IV SCH (11:25)
[2017-09-30] MEDS ORDERED: levoFLOXACIN-Levaquin 500mg/D5 100 ML IV ONE (11:30)
[2017-09-30 13:57] LABS: BASOPHILS % (AUTO) 0.6 % (0-1); EOSINOPHILS # (AUTO) 0.8 X10'3 (0-0.9); HEMATOCRIT 26.4 % (42.0-52.0); HEMOGLOBIN 8.6 g/dl (14.0-17.9); LYMPHOCYTES # (AUTO) 0.9 X10'3 (1.1-4.8); LYMPHOCYTES % (AUTO) 13.6 % (21-51); MEAN CORPUSCULAR HEMOGLOBIN 29.3 PG (27.0-31.0); MEAN CORPUSCULAR HGB CONC 32.8 % (33.0-36.5); MEAN CORPUSCULAR VOLUME 89.5 FL (78-98); MEAN PLATELET VOLUME 8.8 FL (7.4-10.4); MONOCYTES # (AUTO) 0.5 X10'3 (0-0.9); MONOCYTES % (AUTO) 7.6 % (2-12); NEUTROPHILS # (AUTO) 4.6 X10'3 (1.8-7.7); NEUTROPHILS % (AUTO) 66.2 % (42-75); PLATELET COUNT 121 X10'3 (140-440); RED BLOOD COUNT 2.95 X10'6 (4.70-6.10); RED CELL DISTRIBUTION WIDTH 18.4 % (11.5-14.5); WHITE BLOOD COUNT 6.9 X10'3 (4.5-11.0)
[2017-09-30 14:10] LABS: ALBUMIN 1.6 G/DL (3.4-5.0); ANION GAP 10 (8-16); BLOOD UREA NITROGEN 19 MG/DL (7-18); BUN/CREATININE RATIO 7.1 (5.4-32.0); CHLORIDE 101 MMOL/L (99-107); CREATININE 2.68 MG/DL (0.60-1.10); GLUCOSE 178 MG/DL (70-104); MAGNESIUM 2.7 MG/DL (1.5-2.4); PHOSPHORUS 3.6 MG/DL (2.3-4.5); POTASSIUM 4.6 MMOL/L (3.5-5.1); SODIUM 135 MMOL/L (135-145); TOTAL CARBON DIOXIDE 24.3 MMOL/L (24-32); eGFR 24 ML/MIN
[2017-09-30 20:01] LABS: BASOPHILS % (AUTO) 0.2 % (0-1); EOSINOPHILS # (AUTO) 0.8 X10'3 (0-0.9); EOSINOPHILS % (AUTO) 12.3 % (0-6); HEMATOCRIT 24.1 % (42.0-52.0); HEMOGLOBIN 8.1 g/dl (14.0-17.9); LYMPHOCYTES # (AUTO) 0.7 X10'3 (1.1-4.8); LYMPHOCYTES % (AUTO) 10.9 % (21-51); MEAN CORPUSCULAR HEMOGLOBIN 29.3 PG (27.0-31.0); MEAN CORPUSCULAR HGB CONC 33.4 % (33.0-36.5); MEAN CORPUSCULAR VOLUME 87.6 FL (78-98); MEAN PLATELET VOLUME 8.6 FL (7.4-10.4); MONOCYTES # (AUTO) 0.6 X10'3 (0-0.9); MONOCYTES % (AUTO) 8.8 % (2-12); NEUTROPHILS # (AUTO) 4.5 X10'3 (1.8-7.7); NEUTROPHILS % (AUTO) 67.8 % (42-75); PLATELET COUNT 106 X10'3 (140-440); RED BLOOD COUNT 2.75 X10'6 (4.70-6.10); RED CELL DISTRIBUTION WIDTH 18.5 % (11.5-14.5); WHITE BLOOD COUNT 6.6 X10'3 (4.5-11.0)
[2017-09-30] MEDS: insulin glargine (Lantus) pen - multi-dose SQ SCH (20:14)
[2017-09-30 20:50] LABS: ALBUMIN 1.5 G/DL (3.4-5.0); ANION GAP 9 (8-16); BLOOD UREA NITROGEN 18 MG/DL (7-18); BUN/CREATININE RATIO 7.8 (5.4-32.0); CHLORIDE 102 MMOL/L (99-107); CREATININE 2.32 MG/DL (0.60-1.10); GLUCOSE 195 MG/DL (70-104); PHOSPHORUS 3.1 MG/DL (2.3-4.5); POTASSIUM 4.7 MMOL/L (3.5-5.1); SODIUM 136 MMOL/L (135-145); TOTAL CARBON DIOXIDE 24.7 MMOL/L (24-32); eGFR 28 ML/MIN
[2017-09-30] MEDS: atorvastatin 20mg tablet PO SCH (20:53)
[2017-10-01] VITALS (30 sets, daily range): BP systolic 96–135; BP diastolic 45–71
[2017-10-01] MEDS: insulin regular, human vial - multi-dose SQ SCH (01:32)
[2017-10-01] MEDS: Duosol 4K/3 Ca (w/calcium) 5,000 ML HE SCH ×15 (01:35→23:10)
[2017-10-01 01:37] LABS: ALBUMIN 1.6 G/DL (3.4-5.0); ANION GAP 7 (8-16); BLOOD UREA NITROGEN 15 MG/DL (7-18); BUN/CREATININE RATIO 6.9 (5.4-32.0); CHLORIDE 103 MMOL/L (99-107); CREATININE 2.18 MG/DL (0.60-1.10); GLUCOSE 145 MG/DL (70-104); MAGNESIUM 1.9 MG/DL (1.5-2.4); PHOSPHORUS 2.6 MG/DL (2.3-4.5); POTASSIUM 4.4 MMOL/L (3.5-5.1); SODIUM 136 MMOL/L (135-145); TOTAL CARBON DIOXIDE 26.1 MMOL/L (24-32); eGFR 30 ML/MIN
[2017-10-01 01:57] LABS: BASOPHILS % (AUTO) 0.5 % (0-1); EOSINOPHILS # (AUTO) 0.8 X10'3 (0-0.9); EOSINOPHILS % (AUTO) 11.6 % (0-6); HEMOGLOBIN 7.9 g/dl (14.0-17.9); LYMPHOCYTES # (AUTO) 0.8 X10'3 (1.1-4.8); LYMPHOCYTES % (AUTO) 12.4 % (21-51); MEAN CORPUSCULAR HEMOGLOBIN 29.2 PG (27.0-31.0); MEAN CORPUSCULAR HGB CONC 33.1 % (33.0-36.5); MEAN CORPUSCULAR VOLUME 88.2 FL (78-98); MEAN PLATELET VOLUME 8.6 FL (7.4-10.4); MONOCYTES # (AUTO) 0.6 X10'3 (0-0.9); MONOCYTES % (AUTO) 9.2 % (2-12); NEUTROPHILS # (AUTO) 4.4 X10'3 (1.8-7.7); NEUTROPHILS % (AUTO) 66.3 % (42-75); PLATELET COUNT 110 X10'3 (140-440); RED BLOOD COUNT 2.72 X10'6 (4.70-6.10); RED CELL DISTRIBUTION WIDTH 18.6 % (11.5-14.5); WHITE BLOOD COUNT 6.6 X10'3 (4.5-11.0)
[2017-10-01] MEDS: NORepinephrine 8mg/ 250ml NS 250 ML IV SCH ×6 (01:57→20:12)
[2017-10-01] MEDS: mineral oil/petrolatum ophthal oint EACHEYE SCH ×4 (02:00→20:00)
[2017-10-01 04:06] LABS: ABG BASE EXCESS 0.3 mmol/L (-2.0-3.0); ABG HCO3 23.8 mmol/L (22.0-26.0); ABG OXYGEN SATURATION 94.4 % (95-98); ABG PCO2 (T) 31.8 mmHg (35.0-48.0); ABG PH (T) 7.488 (7.350-7.450); ALLEN'S TEST Positive; FCOHb 1.3 % (0.5-1.5); FMetHb 0.3 % (0.3-1.12); FO2Hb 92.9 % (94-100); MINUTE VOLUME 11 L/min; PATIENT TEMPERATURE 36.1; PEEP 5 cm H2O; RESPIRATORY RATE (OBSERVED) 17 b/min; TOTAL HEMOGLOBIN 7.5 G/dl (14.0-18.0)
[2017-10-01] MEDS: normal saline 1000ml 1,000 ML IV SCH (05:15)
[2017-10-01] MEDS: bumetanide 1mg tablet PO SCH (07:48)
[2017-10-01] MEDS: linezolid 600mg tablet PO SCH ×2 (07:48→20:00)
[2017-10-01] MEDS: amiodarone 200mg tablet PO SCH (07:48)
[2017-10-01] MEDS: famotidine/PF 10 mg/ml inj IV SCH ×2 (07:48→20:50)
[2017-10-01] MEDS: isosorbide dinitrate 5mg tablet PO SCH ×2 (07:49→20:44)
[2017-10-01] MEDS: apixaban 5mg tablet PO SCH ×2 (07:49→20:44)
[2017-10-01] MEDS: lactobacillus rhamnosus 10,000 MMU CELLS/CAPSULE PO SCH ×2 (07:49→20:45)
[2017-10-01] MEDS: levoFLOXACIN-Levaquin 250mg/D5 100 ML IV SCH (08:12)
[2017-10-01 08:15] LABS: ALBUMIN 1.4 G/DL (3.4-5.0); ANION GAP 9 (8-16); BLOOD UREA NITROGEN 12 MG/DL (7-18); BUN/CREATININE RATIO 6.9 (5.4-32.0); CHLORIDE 107 MMOL/L (99-107); CREATININE 1.73 MG/DL (0.60-1.10); GLUCOSE 130 MG/DL (70-104); MAGNESIUM 1.5 MG/DL (1.5-2.4); PHOSPHORUS 1.9 MG/DL (2.3-4.5); POTASSIUM 3.9 MMOL/L (3.5-5.1); SODIUM 140 MMOL/L (135-145); TOTAL CARBON DIOXIDE 24.5 MMOL/L (24-32); eGFR 40 ML/MIN
[2017-10-01 08:20] LABS: BASOPHILS % (AUTO) 0.4 % (0-1); EOSINOPHILS # (AUTO) 0.7 X10'3 (0-0.9); EOSINOPHILS % (AUTO) 11.7 % (0-6); LYMPHOCYTES # (AUTO) 0.8 X10'3 (1.1-4.8); LYMPHOCYTES % (AUTO) 13.8 % (21-51); MEAN CORPUSCULAR HGB CONC 32.8 % (33.0-36.5); MEAN CORPUSCULAR VOLUME 88.5 FL (78-98); MEAN PLATELET VOLUME 9.1 FL (7.4-10.4); MONOCYTES # (AUTO) 0.5 X10'3 (0-0.9); MONOCYTES % (AUTO) 8.6 % (2-12); NEUTROPHILS # (AUTO) 3.9 X10'3 (1.8-7.7); NEUTROPHILS % (AUTO) 65.5 % (42-75); PLATELET COUNT 96 X10'3 (140-440); RED BLOOD COUNT 2.39 X10'6 (4.70-6.10); RED CELL DISTRIBUTION WIDTH 18.5 % (11.5-14.5); WHITE BLOOD COUNT 5.9 X10'3 (4.5-11.0)
[2017-10-01 08:31] LABS: HEMATOCRIT 21.1 % (42.0-52.0); HEMOGLOBIN 6.9 g/dl (14.0-17.9); PLATELET ESTIMATE DECREASED
[2017-10-01 08:34] LABS: ANISOCYTOSIS 2+; ELLIPTOCYTES 1+; HYPOCHROMASIA 2+; POLYCHROMASIA 1+; SCHISTOCYTES 1+; TARGET CELLS 1+; TEAR DROP CELLS 1+
[2017-10-01 08:47] LABS: HEMOGLOBIN 7.2 g/dl (14.0-17.9); MEAN CORPUSCULAR HEMOGLOBIN 29.3 PG (27.0-31.0); MEAN CORPUSCULAR VOLUME 88.7 FL (78-98); MEAN PLATELET VOLUME 8.3 FL (7.4-10.4); PLATELET COUNT 98 X10'3 (140-440); RED BLOOD COUNT 2.46 X10'6 (4.70-6.10); RED CELL DISTRIBUTION WIDTH 18.9 % (11.5-14.5); WHITE BLOOD COUNT 6.1 X10'3 (4.5-11.0)
[2017-10-01 09:01] LABS: HEMATOCRIT 21.8 % (42.0-52.0)
[2017-10-01] MEDS: methylnaltrexone br 12mg/0.6ml inj***SubQ only SQ SCH (12:17)
[2017-10-01] MEDS: albumin (human) 25% 100 ML IV solution IV SCH ×2 (12:33→21:51)
[2017-10-01] MEDS: morphine 4 MG/ML inj SYRINge IV PRN (12:36)
[2017-10-01] MEDS ORDERED: metoclopramide 5 mg/ml inj IV PRN (13:00)
[2017-10-01] MEDS ORDERED: heparin 1,000 units/ml 10ml inj HE ONE ×2 (13:05)
[2017-10-01 14:02] LABS: BASOPHILS % (AUTO) 0.4 % (0-1); EOSINOPHILS # (AUTO) 0.7 X10'3 (0-0.9); EOSINOPHILS % (AUTO) 12.1 % (0-6); LYMPHOCYTES # (AUTO) 0.9 X10'3 (1.1-4.8); LYMPHOCYTES % (AUTO) 15.1 % (21-51); MEAN CORPUSCULAR HEMOGLOBIN 28.7 PG (27.0-31.0); MEAN CORPUSCULAR HGB CONC 32.4 % (33.0-36.5); MEAN CORPUSCULAR VOLUME 88.7 FL (78-98); MONOCYTES # (AUTO) 0.5 X10'3 (0-0.9); MONOCYTES % (AUTO) 8.7 % (2-12); NEUTROPHILS # (AUTO) 3.7 X10'3 (1.8-7.7); NEUTROPHILS % (AUTO) 63.7 % (42-75); PLATELET COUNT 93 X10'3 (140-440); RED BLOOD COUNT 2.34 X10'6 (4.70-6.10); RED CELL DISTRIBUTION WIDTH 18.1 % (11.5-14.5); WHITE BLOOD COUNT 5.9 X10'3 (4.5-11.0)
[2017-10-01 14:11] LABS: HEMATOCRIT 20.7 % (42.0-52.0); HEMOGLOBIN 6.7 g/dl (14.0-17.9)
[2017-10-01 14:18] LABS: ALANINE AMINOTRANSFERASE 11 U/L (12-78); ALBUMIN 2.3 G/DL (3.4-5.0); ALBUMIN/GLOBULIN RATIO 0.7 (1.1-1.5); ALKALINE PHOSPHATASE 136 IU/L (46-116); ANION GAP 9 (8-16); ASPARTATE AMINO TRANSFERASE 23 U/L (10-37); BILIRUBIN,TOTAL 1.6 MG/DL (0.1-1.0); BLOOD UREA NITROGEN 11 MG/DL (7-18); BUN/CREATININE RATIO 6.3 (5.4-32.0); CALCIUM 8.4 MG/DL (8.5-10.1); CHLORIDE 103 MMOL/L (99-107); CREATININE 1.75 MG/DL (0.60-1.10); GLUCOSE 141 MG/DL (70-104); POTASSIUM 4.1 MMOL/L (3.5-5.1); SODIUM 138 MMOL/L (135-145); TOTAL CARBON DIOXIDE 26.2 MMOL/L (24-32); TOTAL PROTEIN 5.8 G/DL (6.4-8.2); eGFR 39 ML/MIN
[2017-10-01 14:27] LABS: MAGNESIUM 1.8 MG/DL (1.5-2.4); PHOSPHORUS 1.9 MG/DL (2.3-4.5)
[2017-10-01] MEDS: midazolam 100mg in NS 100ml 100 ML IV PRN (16:37)
[2017-10-01] MEDS: metoclopramide 5 mg/ml inj IV SCH ×2 (20:00→20:50)
[2017-10-01] MEDS: atorvastatin 20mg tablet PO SCH (20:45)
[2017-10-01] MEDS: insulin glargine (Lantus) pen - multi-dose SQ SCH (21:00)
[2017-10-02] VITALS (21 sets, daily range): BP systolic 82–140; BP diastolic 48–60
[2017-10-02 00:22] LABS: BASOPHILS % (AUTO) 0.3 % (0-1); EOSINOPHILS # (AUTO) 0.7 X10'3 (0-0.9); EOSINOPHILS % (AUTO) 12.1 % (0-6); HEMATOCRIT 25.1 % (42.0-52.0); HEMOGLOBIN 8.4 g/dl (14.0-17.9); LYMPHOCYTES # (AUTO) 0.9 X10'3 (1.1-4.8); LYMPHOCYTES % (AUTO) 15.1 % (21-51); MEAN CORPUSCULAR HGB CONC 33.3 % (33.0-36.5); MEAN CORPUSCULAR VOLUME 87.2 FL (78-98); MEAN PLATELET VOLUME 8.3 FL (7.4-10.4); MONOCYTES # (AUTO) 0.4 X10'3 (0-0.9); NEUTROPHILS # (AUTO) 3.9 X10'3 (1.8-7.7); NEUTROPHILS % (AUTO) 65.5 % (42-75); PLATELET COUNT 88 X10'3 (140-440); RED BLOOD COUNT 2.88 X10'6 (4.70-6.10); RED CELL DISTRIBUTION WIDTH 17.4 % (11.5-14.5)
[2017-10-02 00:34] LABS: ALBUMIN 2.7 G/DL (3.4-5.0); ANION GAP 14 (8-16); BLOOD UREA NITROGEN 10 MG/DL (7-18); BUN/CREATININE RATIO 6.7 (5.4-32.0); CHLORIDE 102 MMOL/L (99-107); GLUCOSE 153 MG/DL (70-104); MAGNESIUM 1.7 MG/DL (1.5-2.4); POTASSIUM 4.4 MMOL/L (3.5-5.1); SODIUM 138 MMOL/L (135-145); TOTAL CARBON DIOXIDE 22.5 MMOL/L (24-32); eGFR 47 ML/MIN
[2017-10-02] MEDS: Duosol 4K/3 Ca (w/calcium) 5,000 ML HE SCH (00:50)
[2017-10-02] MEDS: mineral oil/petrolatum ophthal oint EACHEYE SCH ×4 (02:00→20:32)
[2017-10-02] MEDS: metoclopramide 5 mg/ml inj IV SCH ×4 (02:00→20:31)
[2017-10-02 03:35] LABS: ABG BASE EXCESS -5.8 mmol/L (-2.0-3.0); ABG HCO3 17.1 mmol/L (22.0-26.0); ABG OXYGEN SATURATION 87.9 % (95-98); ABG PCO2 (T) 25.2 mmHg (35.0-48.0); ABG PH (T) 7.449 (7.350-7.450); ABG PO2 (T) 53.7 mmHg (83-108); ALLEN'S TEST Positive; FCOHb 1.1 % (0.5-1.5); FMetHb 0.1 % (0.3-1.12); FO2Hb 86.8 % (94-100); PATIENT TEMPERATURE 37.3; PEEP 5 cm H2O; RESPIRATORY RATE 16 b/min; TIDAL VOLUME 450 mL
[2017-10-02 08:10] LABS: BASOPHILS % (AUTO) 0.3 % (0-1); EOSINOPHILS # (AUTO) 0.6 X10'3 (0-0.9); EOSINOPHILS % (AUTO) 11.2 % (0-6); HEMATOCRIT 23.7 % (42.0-52.0); HEMOGLOBIN 7.9 g/dl (14.0-17.9); LYMPHOCYTES # (AUTO) 0.9 X10'3 (1.1-4.8); LYMPHOCYTES % (AUTO) 15.9 % (21-51); MEAN CORPUSCULAR HEMOGLOBIN 28.8 PG (27.0-31.0); MEAN CORPUSCULAR HGB CONC 33.5 % (33.0-36.5); MONOCYTES # (AUTO) 0.2 X10'3 (0-0.9); MONOCYTES % (AUTO) 4.2 % (2-12); NEUTROPHILS # (AUTO) 3.9 X10'3 (1.8-7.7); NEUTROPHILS % (AUTO) 68.4 % (42-75); PLATELET COUNT 95 X10'3 (140-440); RED BLOOD COUNT 2.76 X10'6 (4.70-6.10); RED CELL DISTRIBUTION WIDTH 17.8 % (11.5-14.5); WHITE BLOOD COUNT 5.8 X10'3 (4.5-11.0)
[2017-10-02 08:14] LABS: ALBUMIN 2.4 G/DL (3.4-5.0); ANION GAP 19 (8-16); BLOOD UREA NITROGEN 14 MG/DL (7-18); BUN/CREATININE RATIO 7.8 (5.4-32.0); CHLORIDE 102 MMOL/L (99-107); CREATININE 1.79 MG/DL (0.60-1.10); GLUCOSE 149 MG/DL (70-104); MAGNESIUM 1.6 MG/DL (1.5-2.4); PHOSPHORUS 3.5 MG/DL (2.3-4.5); POTASSIUM 4.7 MMOL/L (3.5-5.1); SODIUM 140 MMOL/L (135-145); TOTAL CARBON DIOXIDE 19.4 MMOL/L (24-32); eGFR 38 ML/MIN
[2017-10-02 08:18] LABS: ALANINE AMINOTRANSFERASE 11 U/L (12-78); ALBUMIN 2.4 G/DL (3.4-5.0); ALBUMIN/GLOBULIN RATIO 0.7 (1.1-1.5); ALKALINE PHOSPHATASE 150 IU/L (46-116); ANION GAP 18 (8-16); ASPARTATE AMINO TRANSFERASE 24 U/L (10-37); BILIRUBIN,TOTAL 2.5 MG/DL (0.1-1.0); BLOOD UREA NITROGEN 13 MG/DL (7-18); BUN/CREATININE RATIO 7.1 (5.4-32.0); CHLORIDE 102 MMOL/L (99-107); CREATININE 1.83 MG/DL (0.60-1.10); GLUCOSE 149 MG/DL (70-104); MAGNESIUM 1.7 MG/DL (1.5-2.4); POTASSIUM 4.7 MMOL/L (3.5-5.1); SODIUM 140 MMOL/L (135-145); TOTAL PROTEIN 5.9 G/DL (6.4-8.2); eGFR 37 ML/MIN
[2017-10-02] MEDS: levoFLOXACIN-Levaquin 250mg/D5 100 ML IV SCH (08:25)
[2017-10-02] MEDS: isosorbide dinitrate 5mg tablet PO SCH ×2 (08:30→20:32)
[2017-10-02] MEDS: apixaban 5mg tablet PO SCH ×2 (08:30→20:31)
[2017-10-02] MEDS: bumetanide 1mg tablet PO SCH (08:30)
[2017-10-02] MEDS: linezolid 600mg tablet PO SCH ×2 (08:30→20:32)
[2017-10-02] MEDS: lactobacillus rhamnosus 10,000 MMU CELLS/CAPSULE PO SCH ×2 (08:30→20:32)
[2017-10-02] MEDS: amiodarone 200mg tablet PO SCH (08:30)
[2017-10-02] MEDS: famotidine/PF 10 mg/ml inj IV SCH ×2 (08:31→20:31)
[2017-10-02] MEDS: NORepinephrine 8mg/ 250ml NS 250 ML IV SCH ×2 (08:59→17:33)
[2017-10-02] MEDS: albumin (human) 25% 100 ML IV solution IV SCH ×2 (09:28→20:31)
[2017-10-02] MEDS: atorvastatin 20mg tablet PO SCH (20:32)
[2017-10-02] MEDS: insulin glargine (Lantus) pen - multi-dose SQ SCH (21:00)
[2017-10-03] VITALS (25 sets, daily range): BP systolic 51–119; BP diastolic 30–69
[2017-10-03] MEDS: mineral oil/petrolatum ophthal oint EACHEYE SCH ×4 (02:20→20:00)
[2017-10-03] MEDS: NORepinephrine 8mg/ 250ml NS 250 ML IV SCH ×2 (02:20→12:12)
[2017-10-03] MEDS: metoclopramide 5 mg/ml inj IV SCH ×4 (02:20→20:00)
[2017-10-03] MEDS: insulin regular, human vial - multi-dose SQ SCH ×2 (02:33→07:46)
[2017-10-03 02:39] LABS: BASOPHILS % (AUTO) 0.1 % (0-1); EOSINOPHILS # (AUTO) 0.6 X10'3 (0-0.9); EOSINOPHILS % (AUTO) 10.3 % (0-6); LYMPHOCYTES # (AUTO) 0.8 X10'3 (1.1-4.8); LYMPHOCYTES % (AUTO) 13.9 % (21-51); MEAN CORPUSCULAR HEMOGLOBIN 28.9 PG (27.0-31.0); MEAN CORPUSCULAR VOLUME 87.5 FL (78-98); MEAN PLATELET VOLUME 7.6 FL (7.4-10.4); MONOCYTES # (AUTO) 0.3 X10'3 (0-0.9); MONOCYTES % (AUTO) 4.7 % (2-12); NEUTROPHILS # (AUTO) 4.2 X10'3 (1.8-7.7); PLATELET COUNT 62 X10'3 (140-440); RED CELL DISTRIBUTION WIDTH 17.9 % (11.5-14.5); WHITE BLOOD COUNT 5.9 X10'3 (4.5-11.0)
[2017-10-03 02:50] LABS: MAGNESIUM 1.8 MG/DL (1.5-2.4)
[2017-10-03 03:06] LABS: HEMOGLOBIN 6.6 g/dl (14.0-17.9)
[2017-10-03 03:07] LABS: HEMATOCRIT 20.1 % (42.0-52.0)
[2017-10-03 03:25] LABS: ABG BASE EXCESS -6.8 mmol/L (-2.0-3.0); ABG HCO3 16.9 mmol/L (22.0-26.0); ABG OXYGEN SATURATION 87.3 % (95-98); ABG PCO2 (T) 25.6 mmHg (35.0-48.0); ABG PH (T) 7.433 (7.350-7.450); ABG PO2 (T) 50.1 mmHg (83-108); ALLEN'S TEST Positive; FCOHb 0.5 % (0.5-1.5); FO2Hb 86.9 % (94-100); MINUTE VOLUME 11 L/min; PEEP 5 cm H2O; RESPIRATORY RATE 16 b/min; TIDAL VOLUME 450 mL; TOTAL HEMOGLOBIN 7.8 G/dl (14.0-18.0)
[2017-10-03 06:44] LABS: ALANINE AMINOTRANSFERASE 12 U/L (12-78); ALBUMIN 2.9 G/DL (3.4-5.0); ALKALINE PHOSPHATASE 118 IU/L (46-116); ANION GAP 20 (8-16); ASPARTATE AMINO TRANSFERASE 14 U/L (10-37); BILIRUBIN,TOTAL 2.6 MG/DL (0.1-1.0); BLOOD UREA NITROGEN 21 MG/DL (7-18); BUN/CREATININE RATIO 8.1 (5.4-32.0); CALCIUM 8.2 MG/DL (8.5-10.1); CHLORIDE 101 MMOL/L (99-107); CREATININE 2.59 MG/DL (0.60-1.10); GLUCOSE 189 MG/DL (70-104); PHOSPHORUS 3.9 MG/DL (2.3-4.5); POTASSIUM 4.6 MMOL/L (3.5-5.1); SODIUM 138 MMOL/L (135-145); TOTAL CARBON DIOXIDE 16.8 MMOL/L (24-32); TOTAL PROTEIN 5.8 G/DL (6.4-8.2); eGFR 25 ML/MIN
[2017-10-03] MEDS: levoFLOXACIN-Levaquin 250mg/D5 100 ML IV SCH (07:26)
[2017-10-03] MEDS: albumin (human) 25% 100 ML IV solution IV SCH ×2 (07:27→20:00)
[2017-10-03] MEDS: methylnaltrexone br 12mg/0.6ml inj***SubQ only SQ SCH (07:27)
[2017-10-03] MEDS: isosorbide dinitrate 5mg tablet PO SCH ×2 (07:27→20:00)
[2017-10-03] MEDS: bumetanide 1mg tablet PO SCH (07:29)
[2017-10-03] MEDS: famotidine/PF 10 mg/ml inj IV SCH ×2 (07:29→20:00)
[2017-10-03] MEDS: apixaban 5mg tablet PO SCH ×2 (07:29→20:00)
[2017-10-03] MEDS: amiodarone 200mg tablet PO SCH (07:29)
[2017-10-03] MEDS: linezolid 600mg tablet PO SCH ×2 (07:29→20:00)
[2017-10-03] MEDS: lactobacillus rhamnosus 10,000 MMU CELLS/CAPSULE PO SCH ×2 (07:29→20:00)
[2017-10-03] MEDS: midazolam 100mg in NS 100ml 100 ML IV PRN (08:49)
[2017-10-03] MEDS: normal saline 1000ml 1,000 ML IV SCH (09:19)
[2017-10-03] MEDS ORDERED: LORazepam 2 mg/ml vial IV PRN (11:50)
[2017-10-03] MEDS ORDERED: morphine 10mg/ml inj. IV PRN ×2 (11:50→12:00)
[2017-10-03] MEDS: morphine 10mg/ml inj. IV PRN ×4 (15:32→22:02)
[2017-10-03] MEDS ORDERED: pantoprazole 40 MG vial IV SCH (20:00)
[2017-10-03] MEDS: atorvastatin 20mg tablet PO SCH (21:00)
[2017-10-03] MEDS: insulin glargine (Lantus) pen - multi-dose SQ SCH (21:00)
[2017-10-04 00:02] VITALS: BP 47/33
[2017-10-04] MEDS: morphine 10mg/ml inj. IV PRN (00:24)
== END 2017-10-04 04:29 | disposition expired | DRG 870 ==
LOC: ER 15:42 → ED HOLD 19:59 → ICU 2S 21:13
PROVIDERS: ATTEND Internal Medicine Critical Care Medicine
PROC: 5A1955Z Respiratory Ventilation, Greater than 96 Consecutive Hours (ICD-10-PCS; principal; 2017-09-28)
PROC: B3251ZZ Computerized Tomography (CT Scan) of Bilateral Common Carotid Arteries using Low Osmolar Contrast (ICD-10-PCS; 2017-09-28)
PROC: B32G1ZZ Computerized Tomography (CT Scan) of Bilateral Vertebral Arteries using Low Osmolar Contrast (ICD-10-PCS; 2017-09-28)
PROC: B3281ZZ Computerized Tomography (CT Scan) of Bilateral Internal Carotid Arteries using Low Osmolar Contrast (ICD-10-PCS; 2017-09-28)
PROC: 03HY32Z Insertion of Monitoring Device into Upper Artery, Percutaneous Approach (ICD-10-PCS; 2017-09-28)
PROC: 4A133B1 Monitoring of Arterial Pressure, Peripheral, Percutaneous Approach (ICD-10-PCS; 2017-09-28)
PROC: 4A133J1 Monitoring of Arterial Pulse, Peripheral, Percutaneous Approach (ICD-10-PCS; 2017-09-28)
PROC: 5A1D90Z Performance of Urinary Filtration, Continuous, Greater than 18 hours Per Day (ICD-10-PCS; 2017-09-29)
PROC: 4A10X4Z Monitoring of Central Nervous Electrical Activity, External Approach (ICD-10-PCS; 2017-09-29)
PROC: 02HV33Z Insertion of Infusion Device into Superior Vena Cava, Percutaneous Approach (ICD-10-PCS; 2017-09-30)
PROC: 05H933Z Insertion of Infusion Device into Right Brachial Vein, Percutaneous Approach (ICD-10-PCS; 2017-09-30)
PROC: B54MZZA Ultrasonography of Right Upper Extremity Veins, Guidance (ICD-10-PCS; 2017-09-30)
PROC: 30233N1 Transfusion of Nonautologous Red Blood Cells into Peripheral Vein, Percutaneous Approach (ICD-10-PCS; 2017-10-01)
DX: A41.81 Sepsis due to Enterococcus (principal); J96.00 Acute respiratory failure, unspecified whether with hypoxia or hypercapnia; I63.231 Cerebral infarction due to unspecified occlusion or stenosis of right carotid arteries; N18.6 End stage renal disease; I13.2 Hypertensive heart and chronic kidney disease with heart failure and with stage 5 chronic kidney disease, or end stage renal disease; G40.89 Other seizures; I50.9 Heart failure, unspecified; D63.8 Anemia in other chronic diseases classified elsewhere; E11.22 Type 2 diabetes mellitus with diabetic chronic kidney disease; E78.00 Pure hypercholesterolemia, unspecified; I25.10 Atherosclerotic heart disease of native coronary artery without angina pectoris; I48.2 Chronic atrial fibrillation; W18.39XA Other fall on same level, initial encounter; Z16.21 Resistance to vancomycin; Z51.5 Encounter for palliative care; Z66 Do not resuscitate; Z99.2 Dependence on renal dialysis; I25.2 Old myocardial infarction; Z95.1 Presence of aortocoronary bypass graft; Z95.0 Presence of cardiac pacemaker; Z79.899 Other long term (current) drug therapy; Z79.01 Long term (current) use of anticoagulants; Z79.4 Long term (current) use of insulin; Y93.89 Activity, other specified; Y92.89 Other specified places as the place of occurrence of the external cause; Y99.8 Other external cause status
CPT/HCPCS: 36415; 36569; 36600; 70450; 70460; 70496; 70498; 71045; 80053; 80069; 80320; 82330; 82803; 82948; 83615; 83721; 83735; 84100; 84134; 84439; 84443; 84484; 85018; 85025; 85027; 85610; 85730; 86885; 86900; 86901; 86920; 87070; 87077; 87186; 93005; 94002; 94003; 94760; 95816; 96365; 96375; 99291; A6212; A6213; A6257; A6449; C1758; C9113; J1644; J1815; J1956; J2020; J2060; J2250; J2270; J2765; J2997; J3475; J3490; J7030; P9016; P9047; Q9967